=== PATIENT | female | born 1935 | race African-American/Black ===

== ENCOUNTER 2018-09-25 19:34 | Inpatient (IN) ==
--- NOTE | 2018-09-25 20:02 | ED ---
HPI General Chief Complaint: Abdominal Pain Stated Complaint: Abdominal pain Time Seen by Provider: 09/25/18 19:50 History of Present Illness HPI narrative: The patient was seen and examined in the presence of the nurse. This patient complains of abdominal pain. Duration is 18 hours. Severity is moderate. Location is right upper quadrant. She has low-grade temp of 100.2. Not having vomiting or diarrhea or urinary complaint. She has had a bit of cough and congestion lately. She is very hard of hearing. Most of the history provided by her daughter. No alleviating factors. No exacerbating factors. Related Data Home Medications Medication Instructions Recorded Confirmed alprazolam 0.25 mg PO BID 09/25/18 09/25/18 carbidopa-levodopa 1 tab PO BID 09/25/18 09/25/18 diltiazem HCl [DILT-XR] 120 mg PO DAILY 09/25/18 09/25/18 furosemide 40 mg PO DAILY 09/25/18 09/25/18 hydrocodone-acetaminophen 1 tab PO Q6H 09/25/18 09/25/18 lisinopril 5 mg PO DAILY 09/25/18 09/25/18 metoprolol tartrate 25 mg PO BID 09/25/18 09/25/18 potassium chloride 10 meq PO DAILY 09/25/18 09/25/18 risperidone 0.25 mg PO DAILY 09/25/18 09/25/18 temazepam 7.5 mg PO DAILY 09/25/18 09/25/18 warfarin 4 mg PO DAILY 09/25/18 09/25/18 Allergies Allergy/AdvReac Type Severity Reaction Status Date / Time propoxyphene Allergy Severe ITCHING Verified 09/25/18 22:25 Review of Systems ROS: all other systems reviewed are negative [facility] Medical History Medical History Afib (Acute) Anxiety (Acute) Hypertension (Acute) Parkinson disease (Acute) Surgical History Surgical History History of coronary artery stent placement (Acute) History of hip replacement (Acute) Social History Social History Substance History: No History of Abuse Second Hand Smoke Exposure: No Smoking Status: Never smoker How Often Do You Have a Drink Containing Alcohol: Never Recent Travel in [facility] within the Last 8 Weeks: No Recent Out of Country Travel within the Last 8 Weeks: No Immunization History Tetanus Immunization: Unsure Exam Narrative Exam Narrative: GENERAL: Well-nourished, well-developed patient in no apparent distress. SKIN: Focused skin assessment reveals no rash and nodules. Skin is Warm and dry. HEAD: Atraumatic. Normocephalic. EYES: Pupils equal and round. No scleral icterus. No injection or drainage. ENT: No nasal bleeding or discharge. Mucous membranes pink and moist. NECK: Trachea midline. No JVD. CARDIOVASCULAR: Regular rate and rhythm. No murmur appreciated. RESPIRATORY: No accessory muscle use. Diminished breath sounds throughout but clear to auscultation. Breath sounds equal bilaterally. GASTROINTESTINAL: Abdomen soft, right upper quadrant is tender without rebound or guarding , nondistended. Hepatic and splenic margins not palpable. MUSCULOSKELETAL: No obvious deformities. No clubbing. No cyanosis. No edema. NEUROLOGICAL: Awake and alert and very hard of hearing. Motor grossly within normal limits. Normal speech. PSYCHIATRIC: Appropriate mood and affect; insight and judgment normal. Course Initial Documented Vital Signs Temperature 100.2 F H 09/25/18 19:37 Pulse Rate 88 09/25/18 19:37 Respiratory Rate 18 09/25/18 19:37 Blood Pressure 108/68 09/25/18 19:37 Pulse Oximetry 96 09/25/18 19:37 Last Documented Vital Signs Temperature 100.2 F H 09/25/18 19:37 Pulse Rate 91 H 09/25/18 19:53 Respiratory Rate 18 09/25/18 19:53 Blood Pressure 134/72 09/25/18 19:53 Pulse Oximetry 98 09/25/18 19:53 Medical Decision Making [facility] Narrative Medical decision making narrative: 83-year-old female complaining of right upper quadrant pain. I have ordered labs and urine studies as well as CT of abdomen and pelvis. Will evaluate chest x-ray as well. Lab studies are reasonably normal except for hyperkalemia 5.5. She does take supplementation. Catheterized urine is looking infected. CT scan shows findings consistent with choledocholithiasis. There is dilatation of the bile duct down to the level of the pancreatic head. Some distention of gallbladder noted I reviewed with hospitalist will admit. I have given a dose of Zosyn to start. 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 I believe that will be the reasonable first step. Medical Screen Exam Complete: Yes Emergency Medical Condition: Yes Lab Data Lab results narrative: Normal CBC, mild hyperkalemia Result diagrams: 09/25/18 20:00 09/25/18 20:00 Lab Results 09/25/18 09/25/18 09/25/18 Range/Units 20:00 20:00 20:00 WBC 8.4 (4.0-11.0) th/mm3 RBC 5.05 (4.00-5.30) mil/mm3 Hgb 12.7 (11.6-15.3) gm/dL Hct 38.1 (35.0-46.0) % MCV 75.5 L (80.0-100.0) fL MCH 25.1 L (27.0-34.0) pg MCHC 33.3 (32.0-36.0) % RDW 14.8 (11.6-17.2) % Plt Count 233 (150-450) th/mm3 MPV 8.8 (7.0-11.0) fL Neut % (Auto) 74.9 H (16.0-70.0) % Lymph % (Auto) 16.6 (9.0-44.0) % [place] % (Auto) 7.8 (0.0-8.0) % Eos % (Auto) 0.4 (0.0-4.0) % Baso % (Auto) 0.3 (0.0-2.0) % Neut # (Auto) 6.3 (1.8-7.7) th/mm3 Lymph # (Auto) 1.4 (1.0-4.8) th/mm3 [place] # (Auto) 0.7 (0.0-0.9) th/mm3 Eos # (Auto) 0.0 (0.0-0.4) th/mm3 Baso # (Auto) 0.0 (0.0-0.2) th/mm3 WBC Differential . Differential Comment Auto diff final PT 11.1 (9.8-11.6) sec INR 1.1 Ratio APTT 24.7 (23.4-31.7) sec Sodium 135 L (136-145) meq/L Potassium 5.5 H (3.5-5.1) meq/L Chloride 104 (98-107) meq/L Carbon Dioxide 25.4 (21.0-32.0) meq/L Anion Gap 6 (5-15) meq/L BUN 14 (7-18) mg/dL Creatinine 1.24 H (0.50-1.00) mg/dL Estimated GFR 50 L (>89) mL/min Random Glucose 124 H (74-106) mg/dL Calcium 8.8 (8.5-10.1) mg/dL Total Bilirubin 1.8 H (0.2-1.0) mg/dL AST 35 (15-37) U/L ALT 17 (10-53) U/L Alkaline Phosphatase 83 (45-117) U/L Total Protein 8.7 H (6.4-8.2) g/dL Albumin 3.2 L (3.4-5.0) g/dL Lipase 100 (73-393) U/L Urine Color (Yellw/Straw) Urine Clarity (Clear) Urine pH (5.0-8.5) Ur Specific [place] (1.002-1.035) Urine Protein (Neg-Trace) mg/dL Urine Glucose (UA) (Negative) mg/dL Urine Ketones (Negative) mg/dL Urine Occult Blood (Negative) Urine Nitrate (Negative) Urine Bilirubin (Negative) Urine Urobilinogen (Less than 2) mg/dL Ur Leukocyte Esterase (Negative) Urine RBC (0-3) /hpf Urine WBC (0-5) /hpf Urine WBC Clumps (None) Ur Squamous Epith Cells (0-5) /hpf Amorphous Sediment (None) /hpf Urine Bacteria (None) /hpf Hyaline Casts (0-3) /lpf Urine Mucus (Occasional) /lpf Micro UA Comment Ur Microscopic Review Urine Culture Comments 09/25/18 Range/Units 21:04 WBC (4.0-11.0) th/mm3 RBC (4.00-5.30) mil/mm3 Hgb (11.6-15.3) gm/dL Hct (35.0-46.0) % MCV (80.0-100.0) fL MCH (27.0-34.0) pg MCHC (32.0-36.0) % RDW (11.6-17.2) % Plt Count (150-450) th/mm3 MPV (7.0-11.0) fL Neut % (Auto) (16.0-70.0) % Lymph % (Auto) (9.0-44.0) % [place] % (Auto) (0.0-8.0) % Eos % (Auto) (0.0-4.0) % Baso % (Auto) (0.0-2.0) % Neut # (Auto) (1.8-7.7) th/mm3 Lymph # (Auto) (1.0-4.8) th/mm3 [place] # (Auto) (0.0-0.9) th/mm3 Eos # (Auto) (0.0-0.4) th/mm3 Baso # (Auto) (0.0-0.2) th/mm3 WBC Differential Differential Comment PT (9.8-11.6) sec INR Ratio APTT (23.4-31.7) sec Sodium (136-145) meq/L Potassium (3.5-5.1) meq/L Chloride (98-107) meq/L Carbon Dioxide (21.0-32.0) meq/L Anion Gap (5-15) meq/L BUN (7-18) mg/dL Creatinine (0.50-1.00) mg/dL Estimated GFR (>89) mL/min Random Glucose (74-106) mg/dL Calcium (8.5-10.1) mg/dL Total Bilirubin (0.2-1.0) mg/dL AST (15-37) U/L ALT (10-53) U/L Alkaline Phosphatase (45-117) U/L Total Protein (6.4-8.2) g/dL Albumin (3.4-5.0) g/dL Lipase (73-393) U/L Urine Color [place] (Yellw/Straw) Urine Clarity Cloudy H (Clear) Urine pH 5.0 (5.0-8.5) Ur Specific [place] 1.019 (1.002-1.035) Urine Protein 500 or greater (Neg-Trace) mg/dL Urine Glucose (UA) Negative (Negative) mg/dL Urine Ketones Negative (Negative) mg/dL Urine Occult Blood Small H (Negative) Urine Nitrate Positive H (Negative) Urine Bilirubin Negative (Negative) Urine Urobilinogen 4 or greater (Less than 2) mg/dL Ur Leukocyte Esterase Moderate H (Negative) Urine RBC 17 H (0-3) /hpf Urine WBC (0-5) /hpf Urine WBC Clumps Many H (None) Ur Squamous Epith Cells 2 (0-5) /hpf Amorphous Sediment Rare H (None) /hpf Urine Bacteria Many H (None) /hpf Hyaline Casts 107 (0-3) /lpf Urine Mucus Many H (Occasional) /lpf Micro UA Comment Cath-culture ind Ur Microscopic Review Not Reportable Urine Culture Comments Cath-cult indicated Imaging Data Attestation: I personally reviewed and interpreted this imaging study as follows : My impression: Biliary. Some gallbladder distention. Possible stone or mass in the duct Radiologist's impression: Abdomen/Pelvis CT 09/25/18 19:58 CONCLUSION: 1. Biliary duct dilatation down to the level the pancreatic head and ampulla. There are some subtle increased density within the distal common bile duct related to either a stone or possible mass in this region. The gallbladder is distended. The gallbladder wall is thickened. Some superimposed cholecystitis may also be present. 2. Scattered colonic diverticula without inflammatory change. 3. Chronic mild compression deformities at T12, L1 and L4. These were present on the prior exam. Chest X-Ray 09/25/18 19:58 CONCLUSION: 1. No acute cardiopulmonary disease. 2. Old trauma involving the right clavicle and right humerus. Discharge Plan Discharge Order Discharge Orders: ED Use Only Admit Order (Routine); Ordered 09/25/18 Ordered By: Aj Hooper Physicians Team ED Provider: Aj Hooper Primary Care Provider: UNKNOWN, Rxs /Orders / Referrals /Forms Prescriptions: No Action furosemide 40 mg Tablet 40 mg PO DAILY RF: 0 risperidone 0.25 mg Tablet 0.25 mg PO DAILY RF: 0 potassium chloride 10 mEq Tablet Extended Release 10 meq PO DAILY RF: 0 hydrocodone-acetaminophen 10-325 mg Tablet 1 tab PO Q6H RF: 0 temazepam 7.5 mg Capsule 7.5 mg PO DAILY RF: 0 alprazolam 0.25 mg Tablet 0.25 mg PO BID RF: 0 diltiazem HCl [DILT-XR] 120 mg Capsule,Ext.Rel 24h Degradable 120 mg PO DAILY RF: 0 lisinopril 5 mg Tablet 5 mg PO DAILY RF: 0 warfarin 1 mg Tablet 4 mg PO DAILY RF: 0 metoprolol tartrate 25 mg Tablet 25 mg PO BID RF: 0 carbidopa-levodopa 10-100 mg Tablet,Disintegrating 1 tab PO BID RF: 0 Discharge Interventions Interventions: Vital Signs Last Done: 09/25/18 19:53 Status ED Status: Admitted Patient
--- NOTE | 2018-09-25 20:14 | XR ---
EXAM DATE: 09/25/2018 8:12 PM EST AGE/SEX: 83 years / Female INDICATIONS: Short of breath. Fever. CLINICAL DATA: This is the patient's initial encounter. Patient reports that signs and symptoms have been present for 2 days and indicates a pain score of 0/10. MEDICAL/SURGICAL HISTORY: . Cardiovascular disease. Hypertension. Deep venous thrombosis. Hyst erectomy. COMPARISON: No prior exams available for comparison. FINDINGS: A single AP view of the chest demonstrates the lungs to be symmetrically aerated without evidence of mass, infiltrate or effusion. The cardiomediastinal contours are unremarkable. Osseous structures a re intact. Old trauma involving the proximal right humerus and distal right clavicle. CONCLUSION: 1. No acute cardiopulmonary disease. 2. Old trauma involving the right clavicle and right humerus. Electronically signed by: Dante Carrillo MD Board Certified Radiologist 09/25/2018 8:13 PM EST
[2018-09-25 20:25] LABS: Baso % (Auto) 0.3 % (0.0-2.0); Eos % (Auto) 0.4 % (0.0-4.0); Hematocrit 38.1 % (35.0-46.0); Hemoglobin 12.7 gm/dL (11.6-15.3); Lymph # (Auto) 1.4 th/mm3 (1.0-4.8); Lymph % (Auto) 16.6 % (9.0-44.0); Mean Corpuscular HGB Conc 33.3 % (32.0-36.0); Mean Corpuscular Hemoglobin 25.1 pg (27.0-34.0); Mean Corpuscular Volume 75.5 fL (80.0-100.0); Mean Platelet Volume 8.8 fL (7.0-11.0); Mono # (Auto) 0.7 th/mm3 (0.0-0.9); Mono % (Auto) 7.8 % (0.0-8.0); Neut # (Auto) 6.3 th/mm3 (1.8-7.7); Neut % (Auto) 74.9 % (16.0-70.0); Platelet Count 233 th/mm3 (150-450); Red Blood Count 5.05 mil/mm3 (4.00-5.30); Red Cell Distribution Width 14.8 % (11.6-17.2); White Blood Count 8.4 th/mm3 (4.0-11.0)
[2018-09-25 20:37] LABS: Activated Partial Thrombo Time 24.7 sec (23.4-31.7); INR 1.1 Ratio; Prothrombin Time 11.1 sec (9.8-11.6)
[2018-09-25 20:42] LABS: Alanine Aminotransferase 17 U/L (10-53); Alkaline Phosphatase 83 U/L (45-117); Total Protein 8.7 g/dL (6.4-8.2)
[2018-09-25 20:43] LABS: Albumin 3.2 g/dL (3.4-5.0); Anion Gap 6 meq/L (5-15); Aspartate Aminotransferase 35 U/L (15-37); Blood Urea Nitrogen 14 mg/dL (7-18); Calcium 8.8 mg/dL (8.5-10.1); Carbon Dioxide 25.4 meq/L (21.0-32.0); Chloride 104 meq/L (98-107); Glomerular Filtration Rate 50 mL/min (>89); Glucose,Random 124 mg/dL (74-106); Lipase 100 U/L (73-393); Potassium 5.5 meq/L (3.5-5.1); Sodium 135 meq/L (136-145)
--- NOTE | 2018-09-25 21:25 | CT ---
EXAM DATE: 09/25/2018 9:16 PM EST AGE/SEX: 83 years / Female INDICATIONS: Right upper quadrant pain. CLINICAL DATA: This is the patient's initial encounter. Patient reports that signs and symptoms have been present for 1 day and indicates a pain score of 6/10. MEDICAL/SURGICAL HISTORY: Hypertension. Coronary artery stent. Bilateral hip replacements. ORAL CONTRAST: No oral contrast ingested. RADIATION DOSE: 8.5 CTDI (mGy) COMPARISON: [facility] – [place], CT ABDOMEN & PELVIS W/O CONTRAST, 09/05/2016. . TECHNIQUE: Multiple contiguous axial images were obtained through the abdomen and pelvis following b olus infusion of 75 ml Omnipaque 350 (iohexol) nonionic water-soluble contrast as a single exam dos e. No oral contrast ingested. Using automated exposure control and adjustment of the mA and/or kV ac cording to patient size, radiation dose was kept as low as reasonably achievable to obtain optimal di agnostic quality images. DICOM format image data is available electronically for review and comparis on. FINDINGS: Lower Lungs: There is some minimal increased density seen at the bases likely related to atelectasis. Liver: There is mild intrahepatic biliary duct dilatation. There is very prominent distention of the gallbladder. The gallbladder wall appears taken. The common bile duct is dilated down to the level th e pancreatic head. There appears to be some subtle increased density in the distal pancreatic head co uld be related to a stone or mass in this region. Spleen: Homogeneous density without enlargement. Pancreas: There is mild dilatation the pancreatic duct. Again noted is the common bile duct dilatati on of the pancreatic head level. Kidneys: Normal in size and shape. No evidence of mass or hydronephrosis. Adrenal Glands: Unremarkable. Aorta: The aorta and proximal iliac vessels are grossly unremarkable without aneurysmal dilation. T here are scattered atherosclerotic calcifications present. Bowel/Mesentery: The bowel loops are grossly unremarkable. The cecum and sigmoid colon have a normal configuration. There are scattered colonic diverticula without inflammatory change. Abdominal Wall: Intact. Retroperitoneum: There is an IVC filter in place. No evidence of adenopathy in the retrocrural, para -aortic, or deep pelvic regions. Bladder: Contours are smooth. Reproductive Organs: No abnormal masses or calcifications seen. Inguinal: The inguinal region is unremarkable without evidence of adenopathy. Bony Structures: There are mild, chronic compression deformity is at the superior aspect of T12, sup erior aspect of L1 and minimally at L4. These were present on the prior exam. There are bilateral hip replacements present. CONCLUSION: 1. Biliary duct dilatation down to the level the pancreatic head and ampulla. There are some subtle increased density within the distal common bile duct related to either a stone or possible mass in th is region. The gallbladder is distended. The gallbladder wall is thickened. Some superimposed cholecy stitis may also be present. 2. Scattered colonic diverticula without inflammatory change. 3. Chronic mild compression deformities at T12, L1 and L4. These were present on the prior exam. Electronically signed by: Klaus Oh MD Board Certified Radiologist 09/25/2018 9:23 PM EST
[2018-09-25 21:30] LABS: Amorphous Sediment,Urine Rare /hpf; Bacteria,Urine Many /hpf; Bilirubin,Urine Negative (Negative); Clarity,Urine Cloudy (Clear); Color,Urine Amber (Yellw/Straw); Glucose,Urine (UA) Negative (Negative); Hyaline Casts,Urine 107 /lpf (0-3); Leukocyte Esterase,Urine Moderate (Negative); Mucus,Urine Many /lpf (Occasional); Nitrite,Urine Positive (Negative); Specific Gravity,Urine 1.019 (1.002-1.035); Squamous Epithelial Cell,Urine 2 /hpf (0-5); Urobilinogen,Urine 4 or Greater mg/dL (Less than 2)
[2018-09-25] MEDS ORDERED: Piperacil/Tazo 3.375 GM Premix 3.375 GM/50 ML PIGGYBACK IV.SIG ONE (22:36)
[2018-09-26] MEDS ORDERED: Bisacodyl 10 MG Supp RECTAL PRN (00:12)
[2018-09-26] MEDS ORDERED: Morphine Inj 4 MG/ML Vial IV.PUSH PRN (00:19)
--- NOTE | 2018-09-26 00:56 | P.HP ---
History of Present Illness Service: [facility] Primary Care Physician: UNKNOWN History of Present Illness: 83-year-old female with a past medical history significant for hypertension, coronary artery disease, CHF, a fib, anxiety, Parkinson's disease and history of DVT anticoagulated on Coumadin presents to the emergency department for evaluation of right upper quadrant abdominal pain. History provided by the patient's daughter. She reports that the patient has been complaining of abdominal pain since Sunday when she saw her primary care provider who prescribed an unknown medication that the patient has not yet been able to take. No fever/chills. No chest pain or shortness of breath. No nausea/ vomiting/diarrhea. No focal neurologic deficits. Inpatient Certification: I certify that the inpatient services were ordered in accordance with Medicare regulations governing the order. This includes certification that hospital inpatient services are reasonable and necessary and in the case of services not specified as inpatient-only under 42 CFR 419.22(n), that they are appropriately provided as inpatient services in accordance to with the 2-midnight benchmark under 43 CFR 412.3(e) Estimated Total Length of Stay (Days): 2 Plans for Post Hospital Care: SNF Review of Systems All other systems reviewed negative except as stated in HPI PMFSH - History History Provided By: Patient - Medical History Medical History: Medical History (Last Updated 09/26/18 @ 00:54 by Niyah Nice MD) A-fib Anxiety Congestive heart failure Coronary artery disease History of DVT (deep vein thrombosis) Hypertension Parkinson disease - Surgical History Surgical History: Surgical History (Last Updated 09/26/18 @ 00:46 by Niyah Nice MD) History of coronary artery stent placement History of hip replacement History of knee surgery - Family History Family History: Family History (Last Updated 09/26/18 @ 00:47 by Niyah Nice MD) Other Family history unknown - Tobacco History Second Hand Smoke Exposure: No Tobacco Use In Past 30 Days: No Smoking Status: Never smoker - Alcohol History How Often Do You Have a Drink Containing Alcohol: Never - Substance Use History Substance History: No History of Abuse - Travel History Recent Travel in the [place] Within the Last 8 Weeks: No Recent Travel Out of the Country Within the Last 8 Weeks: No - Immunization History Tetanus Immunization: Unsure Medications and Allergies Active Medications: Active Medications Acetaminophen (Tylenol) 650 mg PO Q4H PRN PRN Reason: Temp > 100.4 Al Hydroxide/Mg Hydroxide (Milk Of Magnesia Liq) 30 ml PO Q12H PRN PRN Reason: Mild Constipation Bisacodyl (Dulcolax Supp) 10 mg RECTAL DAILY PRN PRN Reason: SEVERE CONSITIPATION Sodium Chloride (Ns Inj) 1,000 mls @ 100 mls/hr IV.CONT .Q10H JESSICA Piperacillin/Tazobactam/Dextrose (Zosyn 2.25 Gm Premix) 2.25 gm in 50 mls @ 100 mls/hr IV.SIG Q6H JESSICA Lactulose (Lactulose Liq) 30 ml PO DAILY PRN PRN Reason: SEVERE CONSITIPATION Morphine Sulfate (Morphine Inj) 2 mg IV.PUSH Q3H PRN PRN Reason: PAIN SCALE 1 TO 10 Ondansetron HCl (Zofran Inj) 4 mg IV.PUSH Q6H PRN PRN Reason: NAUSEA OR VOMITING Sennosides (Senokot) 17.2 mg PO Q12H PRN PRN Reason: Moderate Constipation Sodium Chloride (Ns Flush) 2 ml IV.FLUSH PRN PRN PRN Reason: FLUSH AFTER USING IV ACCESS Sodium Chloride (Ns Flush) 2 ml IV.FLUSH BID JESSICA Sodium Chloride (Ns Flush) 2 ml IV.FLUSH PRN PRN PRN Reason: FLUSH AFTER USING IV ACCESS Allergies Allergy/AdvReac Type Severity Reaction Status Date / Time propoxyphene Allergy Severe ITCHING Verified 09/25/18 22:25 Home Medications Medication Instructions Recorded Confirmed Type alprazolam 0.25 mg PO BID 09/25/18 09/25/18 History carbidopa-levodopa 1 tab PO BID 09/25/18 09/25/18 History diltiazem HCl [DILT-XR] 120 mg PO DAILY 09/25/18 09/25/18 History furosemide 40 mg PO DAILY 09/25/18 09/25/18 History hydrocodone-acetaminophen 1 tab PO Q6H 09/25/18 09/25/18 History lisinopril 5 mg PO DAILY 09/25/18 09/25/18 History metoprolol tartrate 25 mg PO BID 09/25/18 09/25/18 History potassium chloride 10 meq PO DAILY 09/25/18 09/25/18 History risperidone 0.25 mg PO DAILY 09/25/18 09/25/18 History temazepam 7.5 mg PO DAILY 09/25/18 09/25/18 History warfarin 4 mg PO DAILY 09/25/18 09/25/18 History Exam Vital signs: Vital Signs 09/25/18 19:37 09/25/18 19:53 Temperature 100.2 F H Pulse Rate 88 91 H Respiratory Rate 18 18 Blood Pressure 108/68 134/72 Pulse Oximetry 96 98 Intake & Output 09/25/18 09/25/18 09/26/18 06:59 18:59 06:59 Intake Total 50 / 50 Balance 50 / 50 Weight 63.503 kg Intake: IV 50 / 50 Zosyn 3.375 GM Premix 3.375 gm 50 / 50 In 50 ml @ 100 mls/hr IV.SIG ONCE ONE Rx#:[id number] Narrative: Gen.: No acute distress. -[place] female lying in bed sleeping Head: Normocephalic. Atraumatic. EENT: Pupils equal round and reactive to light. Nose without drainage. Airway intact. Throat without injection. Cardiovascular: Regular rate and rhythm. No murmurs, rubs or gallops. Respiratory: Lungs clear to auscultation bilaterally. No wheezes or rhonchi. Abdomen: Soft, exquisitely tender to palpation in the right upper quadrant, nondistended. No peritoneal signs. Musculoskeletal: No gross deformities. No edema. Skin: No obvious rashes or erythema. Neuro: Sensory and motor grossly intact. Cranial nerves II through XII grossly intact. Results - Labs CBC & Chem 7: 09/25/18 20:00 09/25/18 20:00 Labs: Laboratory Results - last 24 hr 09/25/18 09/25/18 09/25/18 20:00 20:00 20:00 WBC 8.4 RBC 5.05 Hgb 12.7 Hct 38.1 MCV 75.5 L MCH 25.1 L MCHC 33.3 RDW 14.8 Plt Count 233 MPV 8.8 Neut % (Auto) 74.9 H Lymph % (Auto) 16.6 [place] % (Auto) 7.8 Eos % (Auto) 0.4 Baso % (Auto) 0.3 Neut # (Auto) 6.3 Lymph # (Auto) 1.4 [place] # (Auto) 0.7 Eos # (Auto) 0.0 Baso # (Auto) 0.0 WBC Differential . Differential Comment Auto diff final PT 11.1 INR 1.1 APTT 24.7 Sodium 135 L Potassium 5.5 H Chloride 104 Carbon Dioxide 25.4 Anion Gap 6 BUN 14 Creatinine 1.24 H Estimated GFR 50 L Random Glucose 124 H Calcium 8.8 Total Bilirubin 1.8 H AST 35 ALT 17 Alkaline Phosphatase 83 Total Protein 8.7 H Albumin 3.2 L Lipase 100 Urine Color Urine Clarity Urine pH Ur Specific Triangle Urine Protein Urine Glucose (UA) Urine Ketones Urine Occult Blood Urine Nitrate Urine Bilirubin Urine Urobilinogen Ur Leukocyte Esterase Urine RBC Urine WBC Urine WBC Clumps Ur Squamous Epith Cells Amorphous Sediment Urine Bacteria Hyaline Casts Urine Mucus Micro UA Comment Ur Microscopic Review Urine Culture Comments 09/25/18 21:04 WBC RBC Hgb Hct MCV MCH MCHC RDW Plt Count MPV Neut % (Auto) Lymph % (Auto) [place] % (Auto) Eos % (Auto) Baso % (Auto) Neut # (Auto) Lymph # (Auto) [place] # (Auto) Eos # (Auto) Baso # (Auto) WBC Differential Differential Comment PT INR APTT Sodium Potassium Chloride Carbon Dioxide Anion Gap BUN Creatinine Estimated GFR Random Glucose Calcium Total Bilirubin AST ALT Alkaline Phosphatase Total Protein Albumin Lipase Urine Color [place] Urine Clarity Cloudy H Urine pH 5.0 Ur Specific Triangle 1.019 Urine Protein 500 or greater Urine Glucose (UA) Negative Urine Ketones Negative Urine Occult Blood Small H Urine Nitrate Positive H Urine Bilirubin Negative Urine Urobilinogen 4 or greater Ur Leukocyte Esterase Moderate H Urine RBC 17 H Urine WBC Urine WBC Clumps Many H Ur Squamous Epith Cells 2 Amorphous Sediment Rare H Urine Bacteria Many H Hyaline Casts 107 Urine Mucus Many H Micro UA Comment Cath-culture ind Ur Microscopic Review Not Reportable Urine Culture Comments Cath-cult indicated - Imaging Impressions Abdomen/Pelvis CT 09/25/18 19:58 CONCLUSION: 1. Biliary duct dilatation down to the level the pancreatic head and ampulla. There are some subtle increased density within the distal common bile duct related to either a stone or possible mass in this region. The gallbladder is distended. The gallbladder wall is thickened. Some superimposed cholecystitis may also be present. 2. Scattered colonic diverticula without inflammatory change. 3. Chronic mild compression deformities at T12, L1 and L4. These were present on the prior exam. Chest X-Ray 09/25/18 19:58 CONCLUSION: 1. No acute cardiopulmonary disease. 2. Old trauma involving the right clavicle and right humerus. Caprini VTE Risk Assessment Caprini VTE Risk Assessment: Moderate/High Risk (score >= 2) Caprini Risk Assessment Model: Point Value = 1 Point Value = 2 Point Value = 3 Point Value = 5 Age 41-60 Minor surgery BMI > 25 kg/m2 Swollen legs Varicose veins or History of unexplained or recurrent spontaneous Oral contraceptives or hormone replacement Sepsis (< 1 month) Serious lung disease, including pneumonia (< 1 month) Abnormal pulmonary function Acute myocardial infarction Congestive heart failure (< 1 month) History of inflammatory bowel disease Medical patient at bed rest Age 61-74 Arthroscopic surgery Major open surgery (> 45 min) Laparoscopic surgery (> 45 min) Malignancy Confined to bed (> 72 hours) Immobilizing plaster cast Central venous access Age >= 75 History of VTE Family history of VTE Factor V Leiden Prothrombin [id number] Lupus anticoagulant Anticardiolipin antibodies Elevated serum homocysteine Heparin-induced thrombocytopenia Other congenital or acquired thrombophilia Stroke (< 1 month) Elective arthroplasty Hip, pelvis, or leg fracture Acute spinal cord injury (< 1 month) Prophylaxis Regimen: Total Risk Factor Score Risk Level Prophylaxis Regimen 0-1 Low Early ambulation 2 Moderate Order ONE of the following: *Sequential Compression Device (SCD) *Heparin 5000 units SQ BID 3-4 Higher Order ONE of the following medications: *Heparin 5000 units SQ TID *Enoxaparin/Lovenox 40 mg SQ daily (WT < 150 kg, CrCl > 30 mL/min) *Enoxaparin/Lovenox 30 mg SQ daily (WT < 150 kg, CrCl > 10-29 mL/min) *Enoxaparin/Lovenox 30 mg SQ BID (WT < 150 kg, CrCl > 30 mL/min) AND/OR *Sequential Compression Device (SCD) 5 or more Highest Order ONE of the following medications: *Heparin 5000 units SQ TID (Preferred with Epidurals) *Enoxaparin/Lovenox 40 mg SQ daily (WT < 150 kg, CrCl > 30 mL/min) *Enoxaparin/Lovenox 30 mg SQ daily (WT < 150 kg, CrCl > 10-29 mL/min) *Enoxaparin/Lovenox 30 mg SQ BID (WT < 150 kg, CrCl > 30 mL/min) AND *Sequential Compression Device (SCD) Assessment and Plan - Plan Assessment/plan: 1. Right upper quadrant abdominal pain CT of the abdomen/pelvis significant for biliary duct dilatation down to the level of the pancreatic head and ampulla. There are some subtle increased density within the distal common bile duct related to either a stone or possible mass with gallbladder distention and wall thickening. Concern for superimposed cholecystitis Gastroenterology consulted, appreciate assistance [place] 2. Parkinson's disease Continue carbidopa-levodopa 3. Congestive heart failure Continue home Lasix 4. Hypertension/atrial fibrillation/CAD Continue home diltiazem, metoprolol and lisinopril Holding home Coumadin for probable ERCP 5. Anxiety Continue home Risperdal and temazepam FEN N.p.o. Electrolytes: Monitor and replete as needed NS at 70 cc/hour Holding pharmacologic anticoagulation for possible procedure
[2018-09-26] MEDS: Sod Chloride 0.9% Inj 1,000 ML IV.CONT SCH ×2 (01:06→11:35)
[2018-09-26] MEDS: Acetaminophen 325 MG Tablet PO PRN ×2 (05:38→20:14)
[2018-09-26] MEDS: Piperacil/Tazo 2.25 GM Premix 2.25 GM/50 ML PIGGYBACK IV.SIG SCH ×4 (05:42→23:21)
[2018-09-26] MEDS: DILTIAZEM HCL 120 MG PO SCH (08:29)
[2018-09-26] MEDS: Furosemide 40 MG Tablet PO SCH (08:29)
[2018-09-26] MEDS: ALPRAZolam 0.25 MG Tablet PO SCH ×2 (08:30→20:15)
[2018-09-26] MEDS: Lisinopril 5 MG Tablet PO SCH (08:30)
[2018-09-26] MEDS ORDERED: CARBIDOPA LEVODOPA PO SCH (09:00)
--- NOTE | 2018-09-26 09:34 | P.CONGI ---
History of Present Illness Consult date: 09/26/18 Consult reason: Choledocholithiasis Chief complaint: Choledocholithiasis, UTI History of Present Illness: This patient is an 83-year-old female with past medical history significant for atrial fibrillation, anxiety, congestive heart failure, coronary artery disease, DVT, hypertension and Parkinson's disease. Surgical history significant for placement of coronary artery stent, hip replacement and knee surgery. Patient's daughter reports that patient presented to the emergency room at [facility] for evaluation of right upper quadrant abdominal pain. Daughter states pain started 2 days ago and has been accompanied by decreased appetite. Patient has had no complaints of nausea or active vomiting. Patient's daughter Arcelia denies patient has had fever or chills. She reports patient has had 2 days of constipation. She states patient normally has a soft bowel movement daily to every other day without any noted bleeding. She recalls last EGD and colonoscopy "many years ago". States to her best recollection, there were no abnormal findings. She endorses that patient does not utilize tobacco or alcohol products. Our service has been consulted to evaluate patient for choledocholithiasis found on CT. <Roxy Neal - Last Filed: 09/26/18 19:37> Review of Systems All other systems reviewed negative except as stated in HPI, other <Roxy Neal - Last Filed: 09/26/18 19:37> PMFSH - History History Provided By: Patient - Medical History Medical History: Medical History (Last Reviewed 09/26/18 @ 16:09 by Dean Shaffer MD) A-fib Anxiety Congestive heart failure Coronary artery disease History of DVT (deep vein thrombosis) Hypertension Parkinson disease - Surgical History Surgical History: Surgical History (Last Reviewed 09/26/18 @ 16:09 by Dean Shaffer MD) History of coronary artery stent placement History of hip replacement History of knee surgery - Family History Family History: Family History (Last Reviewed 09/26/18 @ 16:09 by Dean Shaffer MD) Other Family history unknown - Tobacco History Second Hand Smoke Exposure: No Tobacco Use In Past 30 Days: No Smoking Status: Never smoker - Alcohol History How Often Do You Have a Drink Containing Alcohol: Never - Substance Use History Substance History: No History of Abuse - Travel History Recent Travel in the [place] Within the Last 8 Weeks: No Recent Travel Out of the Country Within the Last 8 Weeks: No - Immunization History Tetanus Immunization: Unsure <Roxy Neal - Last Filed: 09/26/18 19:37> - Medical History Medical History: Medical History (Last Reviewed 09/26/18 @ 16:09 by Dean Shaffer MD) A-fib Anxiety Congestive heart failure Coronary artery disease History of DVT (deep vein thrombosis) Hypertension Parkinson disease - Surgical History Surgical History: Surgical History (Last Reviewed 09/26/18 @ 16:09 by Dean Shaffer MD) History of coronary artery stent placement History of hip replacement History of knee surgery - Family History Family History: Family History (Last Reviewed 09/26/18 @ 16:09 by Dean Shaffer MD) Other Family history unknown <Will Ferreira - Last Filed: 09/27/18 08:44> Medications and Allergies Active Medications: Active Medications Acetaminophen (Tylenol) 650 mg PO Q4H PRN PRN Reason: Temp > 100.4 Last Admin: 09/26/18 05:38 Dose: 650 mg Al Hydroxide/Mg Hydroxide (Milk Of Magnesia Liq) 30 ml PO Q12H PRN PRN Reason: Mild Constipation Alprazolam (Xanax) 0.25 mg PO BID [facility] Last Admin: 09/26/18 08:30 Dose: Not Given Bisacodyl (Dulcolax Supp) 10 mg RECTAL DAILY PRN PRN Reason: SEVERE CONSITIPATION Furosemide (Lasix) 40 mg PO DAILY [facility] Last Admin: 09/26/18 08:29 Dose: Not Given Sodium Chloride (Ns Inj) 1,000 mls @ 70 mls/hr IV.CONT .[id number] [facility] Last Admin: 09/26/18 01:06 Dose: 70 mls/hr Piperacillin/Tazobactam/Dextrose (Zosyn 2.25 Gm Premix) 2.25 gm in 50 mls @ 100 mls/hr IV.SIG Q6H [facility] Last Infusion: 09/26/18 06:16 Dose: Infused Lactulose (Lactulose Liq) 30 ml PO DAILY PRN PRN Reason: SEVERE CONSITIPATION Lisinopril (Prinivil) 5 mg PO DAILY [facility] Last Admin: 09/26/18 08:30 Dose: Not Given Metoprolol Tartrate (Lopressor) 25 mg PO BID [facility] Morphine Sulfate (Morphine Inj) 2 mg IV.PUSH Q3H PRN PRN Reason: PAIN SCALE 1 TO 10 Non-Formulary Medication (Carbidopa-Levodopa [Carbidopa-Levodopa]) 1 tab PO BID [facility] Last Admin: 09/26/18 08:29 Dose: Not Given Non-Formulary Medication (Diltiazem Hcl [Dilt-Xr]) 120 mg PO DAILY [facility] Last Admin: 09/26/18 08:29 Dose: Not Given Ondansetron HCl (Zofran Inj) 4 mg IV.PUSH Q6H PRN PRN Reason: NAUSEA OR VOMITING Potassium Chloride (Klor-Con 10) 10 meq PO DAILY [facility] Last Admin: 09/26/18 08:29 Dose: Not Given Risperidone (Risperdal) 0.25 mg PO DAILY [facility] Last Admin: 09/26/18 08:30 Dose: Not Given Sennosides (Senokot) 17.2 mg PO Q12H PRN PRN Reason: Moderate Constipation Sodium Chloride (Ns Flush) 2 ml IV.FLUSH PRN PRN PRN Reason: FLUSH AFTER USING IV ACCESS Sodium Chloride (Ns Flush) 2 ml IV.FLUSH BID [facility] Last Admin: 09/26/18 08:29 Dose: Not Given Sodium Chloride (Ns Flush) 2 ml IV.FLUSH PRN PRN PRN Reason: FLUSH AFTER USING IV ACCESS Temazepam (Restoril) 7.5 mg PO DAILY [facility] Last Admin: 09/26/18 08:29 Dose: Not Given <Roxy Neal - Last Filed: 09/26/18 19:37> Active Medications: Active Medications Acetaminophen (Tylenol) 650 mg PO Q4H PRN PRN Reason: Temp > 100.4 Last Admin: 09/26/18 20:14 Dose: 650 mg Al Hydroxide/Mg Hydroxide (Milk Of Magnesia Liq) 30 ml PO Q12H PRN PRN Reason: Mild Constipation Alprazolam (Xanax) 0.25 mg PO BID [facility] Last Admin: 09/26/18 20:15 Dose: 0.25 mg Bisacodyl (Dulcolax Supp) 10 mg RECTAL DAILY PRN PRN Reason: SEVERE CONSITIPATION Carbidopa/Levodopa (Simemet 10/100 Mg) 1 tab PO BID [facility] Last Admin: 09/26/18 22:18 Dose: 1 tab Furosemide (Lasix) 40 mg PO DAILY [facility] Last Admin: 09/26/18 08:29 Dose: Not Given Sodium Chloride (Ns Inj) 1,000 mls @ 70 mls/hr IV.CONT .[id number] [facility] Last Admin: 09/27/18 05:58 Dose: 70 mls/hr Piperacillin/Tazobactam/Dextrose (Zosyn 2.25 Gm Premix) 2.25 gm in 50 mls @ 100 mls/hr IV.SIG Q6H [facility] Last Admin: 09/27/18 05:58 Dose: 100 mls/hr Lactulose (Lactulose Liq) 30 ml PO DAILY PRN PRN Reason: SEVERE CONSITIPATION Lisinopril (Prinivil) 5 mg PO DAILY [facility] Last Admin: 09/26/18 08:30 Dose: Not Given Metoprolol Tartrate (Lopressor) 25 mg PO BID [facility] Last Admin: 09/26/18 20:15 Dose: 25 mg Morphine Sulfate (Morphine Inj) 2 mg IV.PUSH Q3H PRN PRN Reason: PAIN SCALE 1 TO 10 Non-Formulary Medication (Diltiazem Hcl [Dilt-Xr]) 120 mg PO DAILY [facility] Last Admin: 09/26/18 08:29 Dose: Not Given Ondansetron HCl (Zofran Inj) 4 mg IV.PUSH Q6H PRN PRN Reason: NAUSEA OR VOMITING Last Admin: 09/26/18 11:34 Dose: 4 mg Potassium Chloride (Klor-Con 10) 10 meq PO DAILY [facility] Last Admin: 09/26/18 08:29 Dose: Not Given Risperidone (Risperdal) 0.25 mg PO DAILY [facility] Last Admin: 09/26/18 08:30 Dose: Not Given Sennosides (Senokot) 17.2 mg PO Q12H PRN PRN Reason: Moderate Constipation Sodium Chloride (Ns Flush) 2 ml IV.FLUSH PRN PRN PRN Reason: FLUSH AFTER USING IV ACCESS Sodium Chloride (Ns Flush) 2 ml IV.FLUSH BID [facility] Last Admin: 09/26/18 20:15 Dose: 2 ml Sodium Chloride (Ns Flush) 2 ml IV.FLUSH PRN PRN PRN Reason: FLUSH AFTER USING IV ACCESS Temazepam (Restoril) 7.5 mg PO DAILY [facility] Last Admin: 12/20/18 08:29 Dose: Not Given <Will Ferreira - Last Filed: 09/27/18 08:44> Allergies Allergy/AdvReac Type Severity Reaction Status Date / Time propoxyphene Allergy Severe ITCHING Verified 09/25/18 22:25 Home Medications Medication Instructions Recorded Confirmed Type alprazolam 0.25 mg PO BID 09/25/18 09/25/18 History carbidopa-levodopa 1 tab PO BID 09/25/18 09/25/18 History diltiazem HCl [DILT-XR] 120 mg PO DAILY 09/25/18 09/25/18 History furosemide 40 mg PO DAILY 09/25/18 09/25/18 History hydrocodone-acetaminophen 1 tab PO Q6H 09/25/18 09/25/18 History lisinopril 5 mg PO DAILY 09/25/18 09/25/18 History metoprolol tartrate 25 mg PO BID 09/25/18 09/25/18 History potassium chloride 10 meq PO DAILY 09/25/18 09/25/18 History risperidone 0.25 mg PO DAILY 09/25/18 09/25/18 History temazepam 7.5 mg PO DAILY 09/25/18 09/25/18 History warfarin 4 mg PO DAILY 09/25/18 09/25/18 History Exam Vital signs: Vital Signs 09/25/18 19:37 09/25/18 19:53 09/26/18 01:24 Temperature 100.2 F H 99.1 F Pulse Rate 88 91 H 75 Respiratory Rate 18 18 16 Blood Pressure 108/68 134/72 148/93 H Pulse Oximetry 96 98 95 09/26/18 01:47 09/26/18 04:00 09/26/18 06:24 Temperature 101.0 F H 99.5 F Pulse Rate 89 Respiratory Rate 16 16 Blood Pressure 127/73 Pulse Oximetry 96 09/26/18 07:30 09/26/18 08:00 Temperature 98.6 F 98.4 F Pulse Rate 72 73 Respiratory Rate 16 18 Blood Pressure 106/62 108/58 L Pulse Oximetry 96 97 Intake & Output 09/25/18 09/26/18 09/26/18 18:59 06:59 18:59 Intake Total 100 / 100 Balance 100 / 100 Weight 63.5 kg Intake: IV 100 / 100 Zosyn 2.25 GM Premix 2.25 gm In 50 / 50 50 ml @ 100 mls/hr IV.SIG Q6H [facility] Rx#:[id number] Zosyn 3.375 GM Premix 3.375 gm 50 / 50 In 50 ml @ 100 mls/hr IV.SIG ONCE ONE Rx#:[id number] Other: Weight On Admission 63.5 kg - Constitutional no acute distress, cooperative Comments: 83-year-old elderly female Awake and alert, hard of hearing History of Parkinson's disease - Routine HEENT Exam Head: Present: normocephalic ENT: Present: mucous membranes moist - Routine Neck Exam Present: supple - Routine Respiratory Exam Present: CTA bilaterally. Absent: accessory muscle use - Routine Cardiovascular Exam Present: irregularly irregular - Routine Abdominal Exam Present: soft, normoactive bowel sounds, tenderness. Absent: distended, guarding, firm Comments: Right upper quadrant tenderness on palpation during exam - Routine Extremities Exam Present: pulses intact. Absent: cyanosis, clubbing, edema - Routine Skin Exam Present: dry, warm. Absent: pallor - Routine Neurological Exam Present: alert <Neal,Roxy - Last Filed: 09/26/18 19:37> Vital signs: Vital Signs 09/26/18 12:00 09/26/18 16:00 09/26/18 20:38 Temperature 98.9 F 99.6 F 100.2 F H Pulse Rate 66 69 73 Respiratory Rate 18 18 17 Blood Pressure 115/60 106/62 120/59 L Pulse Oximetry 96 95 92 L 09/27/18 00:20 09/27/18 04:15 09/27/18 08:00 Temperature 99.3 F 101 F H 100.6 F H Pulse Rate 62 77 86 Respiratory Rate 17 17 18 Blood Pressure 114/59 L 138/71 132/69 Pulse Oximetry 100 97 94 L Intake & Output 09/26/18 09/27/18 09/27/18 18:59 06:59 18:59 Intake Total 1100 / 1100 1890 / 1890 Balance 1100 / 1100 1890 / 1890 Weight 63.5 kg 76.2 kg Intake: IV 1100 / 1100 1050 / 1050 NS Inj 1,000 ML @ 70 mls/hr IV. 1000 / 1000 1000 / 1000 CONT .[id number] [facility] Rx#:[id number] Zosyn 2.25 GM Premix 2.25 gm In 100 / 100 50 / 50 50 ml @ 100 mls/hr IV.SIG Q6H [facility] Rx#:[id number] Oral 0 / 0 Other 840 / 840 Other: Other Intake Source Saline Solution # Voids 2 # Bowel Movements 0 <Will Ferreira - Last Filed: 09/27/18 08:44> Results - Labs CBC & Chem 7: 09/25/18 20:00 09/26/18 14:23 Labs: Laboratory Results - last 24 hr 09/25/18 09/25/18 09/25/18 20:00 20:00 20:00 WBC 8.4 RBC 5.05 Hgb 12.7 Hct 38.1 MCV 75.5 L MCH 25.1 L MCHC 33.3 RDW 14.8 Plt Count 233 MPV 8.8 Neut % (Auto) 74.9 H Lymph % (Auto) 16.6 [place] % (Auto) 7.8 Eos % (Auto) 0.4 Baso % (Auto) 0.3 Neut # (Auto) 6.3 Lymph # (Auto) 1.4 Knox # (Auto) 0.7 Eos # (Auto) 0.0 Baso # (Auto) 0.0 WBC Differential . Differential Comment Auto diff final PT 11.1 INR 1.1 APTT 24.7 Sodium 135 L Potassium 5.5 H Chloride 104 Carbon Dioxide 25.4 Anion Gap 6 BUN 14 Creatinine 1.24 H Estimated GFR 50 L Random Glucose 124 H Calcium 8.8 Total Bilirubin 1.8 H AST 35 ALT 17 Alkaline Phosphatase 83 Total Protein 8.7 H Albumin 3.2 L Lipase 100 Urine Color Urine Clarity Urine pH Ur Specific [place] Urine Protein Urine Glucose (UA) Urine Ketones Urine Occult Blood Urine Nitrate Urine Bilirubin Urine Urobilinogen Ur Leukocyte Esterase Urine RBC Urine WBC Urine WBC Clumps Ur Squamous Epith Cells Amorphous Sediment Urine Bacteria Hyaline Casts Urine Mucus Micro UA Comment Ur Microscopic Review Urine Culture Comments 09/25/18 21:04 WBC RBC Hgb Hct MCV MCH MCHC RDW Plt Count MPV Neut % (Auto) Lymph % (Auto) Knox % (Auto) Eos % (Auto) Baso % (Auto) Neut # (Auto) Lymph # (Auto) Knox # (Auto) Eos # (Auto) Baso # (Auto) WBC Differential Differential Comment PT INR APTT Sodium Potassium Chloride Carbon Dioxide Anion Gap BUN Creatinine Estimated GFR Random Glucose Calcium Total Bilirubin AST ALT Alkaline Phosphatase Total Protein Albumin Lipase Urine Color [place] Urine Clarity Cloudy H Urine pH 5.0 Ur Specific [place] 1.019 Urine Protein 500 or greater Urine Glucose (UA) Negative Urine Ketones Negative Urine Occult Blood Small H Urine Nitrate Positive H Urine Bilirubin Negative Urine Urobilinogen 4 or greater Ur Leukocyte Esterase Moderate H Urine RBC 17 H Urine WBC Urine WBC Clumps Many H Ur Squamous Epith Cells 2 Amorphous Sediment Rare H Urine Bacteria Many H Hyaline Casts 107 Urine Mucus Many H Micro UA Comment Cath-culture ind Ur Microscopic Review Not Reportable Urine Culture Comments Cath-cult indicated - Imaging Impressions Abdomen/Pelvis CT 09/25/18 19:58 CONCLUSION: 1. Biliary duct dilatation down to the level the pancreatic head and ampulla. There are some subtle increased density within the distal common bile duct related to either a stone or possible mass in this region. The gallbladder is distended. The gallbladder wall is thickened. Some superimposed cholecystitis may also be present. 2. Scattered colonic diverticula without inflammatory change. 3. Chronic mild compression deformities at T12, L1 and L4. These were present on the prior exam. Chest X-Ray 09/25/18 19:58 CONCLUSION: 1. No acute cardiopulmonary disease. 2. Old trauma involving the right clavicle and right humerus. <Roxy Neal - Last Filed: 09/26/18 19:37> - Labs CBC & Chem 7: 09/27/18 04:26 09/27/18 04:26 Labs: Laboratory Results - last 24 hr 09/25/18 09/26/18 09/27/18 21:04 14:23 04:26 WBC 8.2 RBC 4.04 Hgb 10.2 L D Hct 31.0 L MCV 76.8 L MCH 25.3 L MCHC 33.0 RDW 14.6 Plt Count 166 MPV 9.0 Neut % (Auto) 77.5 H Lymph % (Auto) 12.4 Knox % (Auto) 9.5 H Eos % (Auto) 0.3 Baso % (Auto) 0.3 Neut # (Auto) 6.3 Lymph # (Auto) 1.0 Knox # (Auto) 0.8 Eos # (Auto) 0.0 Baso # (Auto) 0.0 WBC Differential . Differential Comment Auto diff final Sodium 141 Potassium 3.9 D Chloride 107 Carbon Dioxide 28.3 Anion Gap 6 BUN 17 Creatinine 1.20 H Estimated GFR 52 L Random Glucose 101 Calcium 7.8 L D Total Bilirubin 1.8 H AST 8 L ALT 10 Alkaline Phosphatase 71 Total Protein 7.2 D Albumin 2.8 L Urine Color [place] Urine Clarity Cloudy H Urine pH 5.0 Ur Specific [place] 1.019 Urine Protein 500 or greater Urine Glucose (UA) Negative Urine Ketones Negative Urine Occult Blood Small H Urine Nitrate Positive H Urine Bilirubin Negative Urine Urobilinogen 4 or greater Ur Leukocyte Esterase Moderate H Urine RBC 17 H Urine WBC Urine WBC Clumps Many H Ur Squamous Epith Cells 2 Amorphous Sediment Rare H Urine Bacteria Many H Hyaline Casts 107 Urine Mucus Many H Micro UA Comment Cath-culture ind Urine Culture Comments Cath-cult indicated 09/27/18 04:26 WBC RBC Hgb Hct MCV MCH MCHC RDW Plt Count MPV Neut % (Auto) Lymph % (Auto) Knox % (Auto) Eos % (Auto) Baso % (Auto) Neut # (Auto) Lymph # (Auto) [place] # (Auto) Eos # (Auto) Baso # (Auto) WBC Differential Differential Comment Sodium 139 Potassium 3.7 Chloride 107 Carbon Dioxide 26.6 Anion Gap 5 BUN 16 Creatinine 1.07 H Estimated GFR 59 L Random Glucose 96 Calcium 7.8 L Total Bilirubin AST ALT Alkaline Phosphatase Total Protein Albumin Urine Color Urine Clarity Urine pH Ur Specific [place] Urine Protein Urine Glucose (UA) Urine Ketones Urine Occult Blood Urine Nitrate Urine Bilirubin Urine Urobilinogen Ur Leukocyte Esterase Urine RBC Urine WBC Urine WBC Clumps Ur Squamous Epith Cells Amorphous Sediment Urine Bacteria Hyaline Casts Urine Mucus Micro UA Comment Urine Culture Comments <Will Ferreira - Last Filed: 09/27/18 08:44> Assessment and Plan (1) Choledocholithiasis with acute cholecystitis Status: Acute Code(s): K80.42 - Calculus of bile duct with acute cholecystitis without obstruction - Plan This patient is an 83-year-old female with past medical history significant for atrial fibrillation, anxiety, congestive heart failure, coronary artery disease, DVT, hypertension and Parkinson's disease. Surgical history significant for placement of coronary artery stent, hip replacement and knee surgery. Patient's daughter reports that patient presented to the emergency room at [facility] for evaluation of right upper quadrant abdominal pain. Daughter states pain started 2 days ago and has been accompanied by decreased appetite. Patient has had no complaints of nausea or active vomiting. Patient's daughter Arcelia denies patient has had fever or chills. She reports patient has had 2 days of constipation. She states patient normally has a soft bowel movement daily to every other day without any noted bleeding. She recalls last EGD and colonoscopy "many years ago". States to her best recollection, there were no abnormal findings. She endorses that patient does not utilize tobacco or alcohol products. Our service has been consulted to evaluate patient for choledocholithiasis found on CT. Choledocholithiasis Acute cholecystitis Patient presents to [place] emergency room with reported right upper quadrant abdominal pain times 2 days with decreased appetite. Denies nausea or vomiting or fever and chills 09/25/2018 CT abdomen and pelvis reveal the following: Biliary duct dilatation down to the level the pancreatic head and ampulla. There are some subtle increased density within the distal common bile duct related to either a stone or possible mass in this region. The gallbladder is distended. The gallbladder wall is thickened. Some superimposed cholecystitis may also be present. Scattered colonic diverticula without inflammatory change. Chronic mild compression deformities at T12, L1 and L4. These were present on the prior exam. -WBC 8.4 hemoglobin 12.7 hematocrit 38.1 platelet count 233 INR 1.1 -Creatinine 1.24 BUN 14 potassium 5.5 total bilirubin 1.8 AST 35 ALT 17 alk phos 83 lipase 100 albumin 3.2 -Urinalysis-positive nitrates moderate leukocyte esterase RBC 17 many bacteria, culture indicated Plan -Clear liquid diet -N.p.o. after midnight -Obtain consent for ERCP-ERCP in am -Electrolyte correction -Monitor labs -Analgesics and antiemetics as per attending -IV hydration -Continue IV antibiotics -Supportive care -Further recommendations to follow This patient has been seen by myself and Dr. Ferreira and this note is written on his behalf - Attending Attestation Dr. Ferreira <Roxy Neal - Last Filed: 09/26/18 19:37> (1) Choledocholithiasis with acute cholecystitis Status: Acute Code(s): K80.42 - Calculus of bile duct with acute cholecystitis without obstruction - Attending Attestation The patient is seen and examined. I agree with the assessment and recommendations above. <Will Ferreira - Last Filed: 09/27/18 08:44>
[2018-09-26] MEDS: Metoprolol Tartrate 25 MG Tablet PO SCH ×2 (10:44→20:15)
--- NOTE | 2018-09-26 13:27 | P.CONGS ---
[facility] Gen Surgery Consult Note Consult date: 09/26/18 Reason for consult: abdominal pain Requesting physician: Roxy Neal Narrative: CONSULTATION NOTE FOR SURGICAL ATTENDING, DR. ANNETTA SHAFFER This is an 83 year old female with a past medical history of hypertension, CAD, CHF, atrial fibrillation, anxiety, Parkinson's disease and DVT on Coumadin. The patient presented to the ED with RUQ abdominal pain since Sunday. Her daughter is present at bedside to provide history. A CT abdomen/pelvis was obtained which shows biliary duct dilation with questionable mass vs stone in the distal common bile duct; the gallbladder is distended with a thickened wall. Her WBC is normal. Her total bilirubin is slightly elevated at 1.8. She has been evaluated by the Gastroenterology team and an ERCP is planned for today. A General Surgery consultation has been requested. Review of Systems All other systems reviewed negative except as stated in [facility] PMF - History History Provided By: Family Member, Medical Record - Medical History Medical History: Medical History (Last Reviewed 09/26/18 @ 16:09 by Annetta Shaffer MD) A-fib Anxiety Congestive heart failure Coronary artery disease History of DVT (deep vein thrombosis) Hypertension Parkinson disease - Surgical History Surgical History: Surgical History (Last Reviewed 09/26/18 @ 16:09 by Annetta Shaffer MD) History of coronary artery stent placement History of hip replacement History of knee surgery - Family History Family History: Family History (Last Reviewed 09/26/18 @ 16:09 by Annetta Shaffer MD) Other Family history unknown - Social History I have reviewed the patient's Social History: Yes - Tobacco History Second Hand Smoke Exposure: Yes Tobacco Use In Past 30 Days: No Smoking Status: Never smoker - Alcohol History How Often Do You Have a Drink Containing Alcohol: Never - Substance Use History Substance History: No History of Abuse - Travel History Recent Travel in the [place] Within the Last 8 Weeks: No Recent Travel Out of the Country Within the Last 8 Weeks: No - Immunization History Tetanus Immunization: Unsure Hx Influenza Vaccine This Season: Yes Medications and Allergies Allergies Allergy/AdvReac Type Severity Reaction Status Date / Time propoxyphene Allergy Severe ITCHING Verified 09/25/18 22:25 Home Medications Medication Instructions Recorded Confirmed Type alprazolam 0.25 mg PO BID 09/25/18 09/25/18 History carbidopa-levodopa 1 tab PO BID 09/25/18 09/25/18 History diltiazem HCl [DILT-XR] 120 mg PO DAILY 09/25/18 09/25/18 History furosemide 40 mg PO DAILY 09/25/18 09/25/18 History hydrocodone-acetaminophen 1 tab PO Q6H 09/25/18 09/25/18 History lisinopril 5 mg PO DAILY 09/25/18 09/25/18 History metoprolol tartrate 25 mg PO BID 09/25/18 09/25/18 History potassium chloride 10 meq PO DAILY 09/25/18 09/25/18 History risperidone 0.25 mg PO DAILY 09/25/18 09/25/18 History temazepam 7.5 mg PO DAILY 09/25/18 09/25/18 History warfarin 4 mg PO DAILY 09/25/18 09/25/18 History Active Medications: Active Medications Acetaminophen (Tylenol) 650 mg PO Q4H PRN PRN Reason: Temp > 100.4 Last Admin: 09/26/18 05:38 Dose: 650 mg Al Hydroxide/Mg Hydroxide (Milk Of Magnesia Liq) 30 ml PO Q12H PRN PRN Reason: Mild Constipation Alprazolam (Xanax) 0.25 mg PO BID [facility] Last Admin: 09/26/18 08:30 Dose: Not Given Bisacodyl (Dulcolax Supp) 10 mg RECTAL DAILY PRN PRN Reason: SEVERE CONSITIPATION Furosemide (Lasix) 40 mg PO DAILY [facility] Last Admin: 09/26/18 08:29 Dose: Not Given Sodium Chloride (Ns Inj) 1,000 mls @ 70 mls/hr IV.CONT .[id number] [facility] Last Admin: 09/26/18 11:35 Dose: 70 mls/hr Piperacillin/Tazobactam/Dextrose (Zosyn 2.25 Gm Premix) 2.25 gm in 50 mls @ 100 mls/hr IV.SIG Q6H [facility] Last Infusion: 09/26/18 12:04 Dose: Infused Lactulose (Lactulose Liq) 30 ml PO DAILY PRN PRN Reason: SEVERE CONSITIPATION Lisinopril (Prinivil) 5 mg PO DAILY [facility] Last Admin: 09/26/18 08:30 Dose: Not Given Metoprolol Tartrate (Lopressor) 25 mg PO BID [facility] Last Admin: 09/26/18 10:44 Dose: 25 mg Morphine Sulfate (Morphine Inj) 2 mg IV.PUSH Q3H PRN PRN Reason: PAIN SCALE 1 TO 10 Non-Formulary Medication (Carbidopa-Levodopa [Carbidopa-Levodopa]) 1 tab PO BID [facility] Last Admin: 09/26/18 08:29 Dose: Not Given Non-Formulary Medication (Diltiazem Hcl [Dilt-Xr]) 120 mg PO DAILY [facility] Last Admin: 09/26/18 08:29 Dose: Not Given Ondansetron HCl (Zofran Inj) 4 mg IV.PUSH Q6H PRN PRN Reason: NAUSEA OR VOMITING Last Admin: 09/26/18 11:34 Dose: 4 mg Potassium Chloride (Klor-Con 10) 10 meq PO DAILY [facility] Last Admin: 09/26/18 08:29 Dose: Not Given Risperidone (Risperdal) 0.25 mg PO DAILY [facility] Last Admin: 09/26/18 08:30 Dose: Not Given Sennosides (Senokot) 17.2 mg PO Q12H PRN PRN Reason: Moderate Constipation Sodium Chloride (Ns Flush) 2 ml IV.FLUSH PRN PRN PRN Reason: FLUSH AFTER USING IV ACCESS Sodium Chloride (Ns Flush) 2 ml IV.FLUSH BID [facility] Last Admin: 09/26/18 08:29 Dose: Not Given Sodium Chloride (Ns Flush) 2 ml IV.FLUSH PRN PRN PRN Reason: FLUSH AFTER USING IV ACCESS Temazepam (Restoril) 7.5 mg PO DAILY [facility] Last Admin: 09/26/18 08:29 Dose: Not Given Exam Vital signs: Vital Signs 09/25/18 19:37 09/25/18 19:53 09/26/18 01:24 Temperature 100.2 F H 99.1 F Pulse Rate 88 91 H 75 Respiratory Rate 18 18 16 Blood Pressure 108/68 134/72 148/93 H Pulse Oximetry 96 98 95 09/26/18 01:47 09/26/18 04:00 09/26/18 06:24 Temperature 101.0 F H 99.5 F Pulse Rate 89 Respiratory Rate 16 16 Blood Pressure 127/73 Pulse Oximetry 96 09/26/18 07:30 09/26/18 08:00 09/26/18 12:00 Temperature 98.6 F 98.4 F 98.9 F Pulse Rate 72 73 66 Respiratory Rate 16 18 18 Blood Pressure 106/62 108/58 L 115/60 Pulse Oximetry 96 97 96 Intake & Output 09/25/18 09/26/18 09/26/18 18:59 06:59 18:59 Intake Total 100 / 100 1050 / 1050 Balance 100 / 100 1050 / 1050 Weight 63.5 kg 63.5 kg Intake: IV 100 / 100 1050 / 1050 NS Inj 1,000 ML @ 70 mls/hr IV. 1000 / 1000 CONT .[id number] [facility] Rx#:[id number] Zosyn 2.25 GM Premix 2.25 gm In 50 / 50 50 / 50 50 ml @ 100 mls/hr IV.SIG Q6H [facility] Rx#:[id number] Zosyn 3.375 GM Premix 3.375 gm 50 / 50 In 50 ml @ 100 mls/hr IV.SIG ONCE ONE Rx#:[id number] Other: Weight On Admission 63.5 kg Narrative: GENERAL: 83 year old female resting in bed in no acute distress. SKIN: Warm and dry. HEAD: Atraumatic. Normocephalic. EYES: Pupils equal and round. No scleral icterus. No injection or drainage. ENT: No nasal bleeding or discharge. Mucous membranes pink and moist. NECK: Trachea midline. CARDIOVASCULAR: Regular rate and rhythm. RESPIRATORY: No accessory muscle use. Clear to auscultation. Breath sounds equal bilaterally. GASTROINTESTINAL: Abdomen soft, nondistended. RUQ tenderness with palpation. No guarding. MUSCULOSKELETAL: Extremities without clubbing, cyanosis, or edema. No obvious deformities. NEUROLOGICAL: Awake and alert. No obvious cranial nerve deficits. Motor grossly within normal limits. Five out of 5 muscle strength in the arms and legs. Normal speech. PSYCHIATRIC: Difficult to access. Results - Labs 09/25/18 20:00 09/26/18 14:23 Laboratory Results - last 24 hr 09/25/18 09/25/18 09/25/18 20:00 20:00 20:00 WBC 8.4 RBC 5.05 Hgb 12.7 Hct 38.1 MCV 75.5 L MCH 25.1 L MCHC 33.3 RDW 14.8 Plt Count 233 MPV 8.8 Neut % (Auto) 74.9 H Lymph % (Auto) 16.6 Steele % (Auto) 7.8 Eos % (Auto) 0.4 Baso % (Auto) 0.3 Neut # (Auto) 6.3 Lymph # (Auto) 1.4 Steele # (Auto) 0.7 Eos # (Auto) 0.0 Baso # (Auto) 0.0 WBC Differential . Differential Comment Auto diff final PT 11.1 INR 1.1 APTT 24.7 Sodium 135 L Potassium 5.5 H Chloride 104 Carbon Dioxide 25.4 Anion Gap 6 BUN 14 Creatinine 1.24 H Estimated GFR 50 L Random Glucose 124 H Calcium 8.8 Total Bilirubin 1.8 H AST 35 ALT 17 Alkaline Phosphatase 83 Total Protein 8.7 H Albumin 3.2 L Lipase 100 Urine Color Urine Clarity Urine pH Ur Specific [place] Urine Protein Urine Glucose (UA) Urine Ketones Urine Occult Blood Urine Nitrate Urine Bilirubin Urine Urobilinogen Ur Leukocyte Esterase Urine RBC Urine WBC Urine WBC Clumps Ur Squamous Epith Cells Amorphous Sediment Urine Bacteria Hyaline Casts Urine Mucus Micro UA Comment Ur Microscopic Review Urine Culture Comments 09/25/18 21:04 WBC RBC Hgb Hct MCV MCH MCHC RDW Plt Count MPV Neut % (Auto) Lymph % (Auto) Steele % (Auto) Eos % (Auto) Baso % (Auto) Neut # (Auto) Lymph # (Auto) Steele # (Auto) Eos # (Auto) Baso # (Auto) WBC Differential Differential Comment PT INR APTT Sodium Potassium Chloride Carbon Dioxide Anion Gap BUN Creatinine Estimated GFR Random Glucose Calcium Total Bilirubin AST ALT Alkaline Phosphatase Total Protein Albumin Lipase Urine Color Nisreen Urine Clarity Cloudy H Urine pH 5.0 Ur Specific [place] 1.019 Urine Protein 500 or greater Urine Glucose (UA) Negative Urine Ketones Negative Urine Occult Blood Small H Urine Nitrate Positive H Urine Bilirubin Negative Urine Urobilinogen 4 or greater Ur Leukocyte Esterase Moderate H Urine RBC 17 H Urine WBC Urine WBC Clumps Many H Ur Squamous Epith Cells 2 Amorphous Sediment Rare H Urine Bacteria Many H Hyaline Casts 107 Urine Mucus Many H Micro UA Comment Cath-culture ind Ur Microscopic Review Not Reportable Urine Culture Comments Cath-cult indicated - Imaging Imaging: ITS Impressions Abdomen/Pelvis CT 09/25/18 19:58 CONCLUSION: 1. Biliary duct dilatation down to the level the pancreatic head and ampulla. There are some subtle increased density within the distal common bile duct related to either a stone or possible mass in this region. The gallbladder is distended. The gallbladder wall is thickened. Some superimposed cholecystitis may also be present. 2. Scattered colonic diverticula without inflammatory change. 3. Chronic mild compression deformities at T12, L1 and L4. These were present on the prior exam. Chest X-Ray 09/25/18 19:58 CONCLUSION: 1. No acute cardiopulmonary disease. 2. Old trauma involving the right clavicle and right humerus. CT scan - abdomen: report reviewed, image reviewed CT scan - pelvis: report reviewed, image reviewed Assessment and Plan - Assessment (1) Choledocholithiasis with acute cholecystitis Code(s): K80.42 - Calculus of bile duct with acute cholecystitis without obstruction Status: Acute Plan: 83 year old female with RUQ tenderness; choledocholithiasis -GI planning for ERCP -NPO -Continue IVF -Will follow up on results of ERCP -Patient would need Cardiac clearance for any surgical procedure -May benefit from cholecystostomy tube rather than laparoscopic cholecystectomy -Will continue to follow along with you -Thank you for this consult (2) Right upper quadrant pain Code(s): R10.11 - Right upper quadrant pain Status: Acute (3) Afib Code(s): I48.91 - Unspecified atrial fibrillation Status: Acute Qualifiers: Atrial fibrillation type: chronic Qualified Code(s): I48.2 - Chronic atrial fibrillation (4) Parkinsons Code(s): G20 - Parkinson's disease Status: Acute (5) Congestive heart failure Code(s): I50.9 - Heart failure, unspecified Status: Acute (6) 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 Shaffer Ms. Fitzpatrick and daughter at the bedside - Attending Attestation CONSULTATION NOTE FOR SURGICAL ATTENDING, DR. ANNETTA SHAFFER Patient lying in bed Appears very sleepy Family at bedside Patient has right upper quadrant pain Agree with ERCP With her multiple medical issues may be best to proceed with cholecystotomy tube depending on how the ERCP goes We will follow and evaluate tomorrow I agree with above assessment and plan. The exam, history, and the medical decision-making described in the above note were completed with the assistance of the mid-level provider. I reviewed and agree with the findings presented. I attest that I had a [id number] encounter with the patient on the same day, and personally performed and documented my assessment and findings in the medical record. The following services were provided during this hospital visit: Chart data review, vital sign assessments/reviewing monitor data Review of consultations notes if present. Medication orders/review and/or management Ordering and/or reviewing lab tests Ordering and/or interpreting/reviewing x-rays and/or diagnostic studies Care of the patient and discussion of the patient with the care team Documentation time To help prompt me to consider important information that might be impacting today's encounter and assessment, Information from prior notes written by myself or my colleagues may have been "brought forward/copy and pasted" into today's note.
[2018-09-26 15:20] LABS: Alanine Aminotransferase 10 U/L (10-53); Albumin 2.8 g/dL (3.4-5.0); Alkaline Phosphatase 71 U/L (45-117); Anion Gap 6 meq/L (5-15); Aspartate Aminotransferase 8 U/L (15-37); Blood Urea Nitrogen 17 mg/dL (7-18); Calcium 7.8 mg/dL (8.5-10.1); Carbon Dioxide 28.3 meq/L (21.0-32.0); Chloride 107 meq/L (98-107); Glomerular Filtration Rate 52 mL/min (>89); Glucose,Random 101 mg/dL (74-106); Potassium 3.9 meq/L (3.5-5.1); Sodium 141 meq/L (136-145); Total Protein 7.2 g/dL (6.4-8.2)
--- NOTE | 2018-09-26 16:24 | ECG ---
Date Performed: 09/26/2018 Time Performed: 10:50:26 PTAGE: 83 years EKG: Sinus rhythm LEFT ANTERIOR FASCICULAR BLOCK LEFT VENTRICULAR HYPERTROPHY AND ST-T CHANGE ABNORMAL ECG Since PREVIOUS TRACING , no significant change noted PREVIOUS TRACIN07/03/2014 16.26 DOCTOR: Pedro Shahid Interpretating Date/Time 09/26/2018 16:23:26
[2018-09-27] MEDS: Sod Chloride 0.9% Inj 1,000 ML IV.CONT SCH ×2 (05:58→18:25)
[2018-09-27] MEDS: Piperacil/Tazo 2.25 GM Premix 2.25 GM/50 ML PIGGYBACK IV.SIG SCH (05:58)
[2018-09-27 06:02] LABS: Baso % (Auto) 0.3 % (0.0-2.0); Eos % (Auto) 0.3 % (0.0-4.0); Hemoglobin 10.2 gm/dL (11.6-15.3); Lymph % (Auto) 12.4 % (9.0-44.0); Mean Corpuscular Hemoglobin 25.3 pg (27.0-34.0); Mean Corpuscular Volume 76.8 fL (80.0-100.0); Mono # (Auto) 0.8 th/mm3 (0.0-0.9); Mono % (Auto) 9.5 % (0.0-8.0); Neut # (Auto) 6.3 th/mm3 (1.8-7.7); Neut % (Auto) 77.5 % (16.0-70.0); Platelet Count 166 th/mm3 (150-450); Red Blood Count 4.04 mil/mm3 (4.00-5.30); Red Cell Distribution Width 14.6 % (11.6-17.2); White Blood Count 8.2 th/mm3 (4.0-11.0)
[2018-09-27 06:11] LABS: Calcium 7.8 mg/dL (8.5-10.1); Carbon Dioxide 26.6 meq/L (21.0-32.0); Potassium 3.7 meq/L (3.5-5.1)
[2018-09-27] MEDS: ALPRAZolam 0.25 MG Tablet PO SCH ×2 (10:46→23:04)
[2018-09-27] MEDS ORDERED: fentaNYL Citrate Inj 100 MCG/2 ML Ampul ONE (12:23)
--- NOTE | 2018-09-27 13:14 | P.PCN ---
Date of procedure: 09/27/18 Pre-op diagnosis: Choledocholithiasis with dilated bile duct Post-op diagnosis: same Procedure: Indication: Common bile duct stone and dilated common bile duct Procedure Performed: ERCP with sphincterotomy and balloon stone extraction. After informing the patient about procedure and possible complications consent was signed. history and physical were updated. Patient was taken to the procedure room and placed in position. Time out was completed. Adequate sedation was performed by anesthesia provider. ERCP, the scope was placed in the mouth advanced under video guide to the second portion of the duodenum, the scope was positioned in the second portion across from the ampulla. Good position with identification of the os was obtained. Using the sphincterotome and guidewire the scope was maneuvered until deep cannulation of the bile duct was obtained as demonstrated with flouro. The wire was advanced and the sphincterotome was advanced to the level of the bifucation. Contrast was injected to demonstrated a markedly dilated common and hepatic duct to 15-18 mm. No distinct filling defects were seen. Due to difficulty getting sphincterotome to advance over the wire initially a sphincterotomy was performed with a controlled cut. No bleeding was seen. Bile seen to flow freely from the bile duct after the sphincterotomy. The fully bowed sphincterotome was then able to be easily pulled through the sphincterotomy. With the wire in good position the sphincterotome was exchanged out for a 15 mm balloon. The balloon was then used to obtain a good cholangiogram and was then pulled back to sweep the duct. No debris was seen as the balloon was pulled through the duct. The scope was straightened, the balloon and wire removed. The scope was then withdrawn aborally without any immediate complication. Impression: Dilated common bile duct, no stone seen. Bile freely draining from bile duct. Recommendations; 1- Supportive care 2- ok to transfer to recovery area then discharge per protocol 3- Clear liquids today. If stable, advance to regular diet tomorrow as tolerated. Anesthesia: MAC Surgeon: Will Ferreira Flooring Machine Operator: Gaudencio Mendenhall Pathology: none sent Condition: stable Disposition: floor
[2018-09-27] MEDS: Metoprolol Tartrate 25 MG Tablet PO SCH ×2 (14:30→23:04)
[2018-09-27] MEDS: Lisinopril 5 MG Tablet PO SCH ×2 (14:31→18:42)
[2018-09-27] MEDS: Furosemide 40 MG Tablet PO SCH ×3 (14:32→18:42)
--- NOTE | 2018-09-27 14:42 | FL ---
EXAM DATE: 09/27/2018 1:12 PM EST AGE/SEX: 83 years / Female INDICATIONS: ERCP. CLINICAL DATA: This is the patient's initial encounter. Patient reports that signs and symptoms have been present for 1 day and indicates a pain score of Nonresponsive. MEDICAL/SURGICAL HISTORY: Non-responsive. Non-responsive. COMPARISON: No prior exams available for comparison. FLUORO TIME: 80.7 IMAGE COUNT: 1 RADIATION DOSE: [id number] DAP FINDINGS: An ERCP was performed by the ordering physician. The images demonstrate partial filling of a mildly dilated common duct on the single image provided. CONCLUSION: Mildly dilated common duct. Electronically signed by: Raphael Jung MD Board Certified Radiologist 09/27/2018 2:41 PM EST
[2018-09-27] MEDS ORDERED: Warfarin Consult Pharmacy OTHER PRN (15:24)
--- NOTE | 2018-09-27 15:26 | P.PN ---
Subjective Interval history: Follow-up visit for right upper quadrant abdominal pain. Patient is seen and examined resting in bed comfortably and appears to be in no acute distress, no family present. She is extremely hard of hearing and communicate simple questions with written note. She continues to complain of pain in her abdomen, denies any dysuria, no shortness of breath. Physical Exam Vital signs: Vital Signs 09/26/18 16:00 09/26/18 20:38 09/27/18 00:20 Temperature 99.6 F 100.2 F H 99.3 F Pulse Rate 69 73 62 Respiratory Rate 18 17 17 Blood Pressure 106/62 120/59 L 114/59 L Pulse Oximetry 95 92 L 100 09/27/18 04:15 09/27/18 08:00 09/27/18 13:17 Temperature 101 F H 100.6 F H 99.3 F Pulse Rate 77 86 84 Respiratory Rate 17 18 24 Blood Pressure 138/71 132/69 137/64 Pulse Oximetry 97 94 L 96 09/27/18 13:30 09/27/18 13:45 09/27/18 14:00 Temperature 100 F H Pulse Rate 84 83 77 Respiratory Rate 26 H 24 24 Blood Pressure 152/80 H 153/75 H 147/72 H Pulse Oximetry 96 95 97 09/27/18 14:36 Temperature Pulse Rate Respiratory Rate 16 Blood Pressure Pulse Oximetry Intake & Output 09/26/18 09/27/18 09/27/18 18:59 06:59 18:59 Intake Total 1100 / 1100 1890 / 1890 1300 / 1300 Balance 1100 / 1100 1890 / 1890 1300 / 1300 Weight 63.5 kg 76.2 kg Intake: IV 1100 / 1100 1050 / 1050 50 / 50 NS Inj 1,000 ML @ 70 mls/hr IV. 1000 / 1000 1000 / 1000 CONT .[id number] [facility] Rx#:[id number] Zosyn 2.25 GM Premix 2.25 gm In 100 / 100 50 / 50 50 / 50 50 ml @ 100 mls/hr IV.SIG Q6H [facility] Rx#:[id number] Oral 0 / 0 Anesthesia Amount 1250 / 1250 Other 840 / 840 Other: Other Intake Source Saline Solution # Voids 2 # Bowel Movements 0 Narrative: GENERAL: Well-developed, well-nourished elderly AA female in no acute distress. SKIN: Warm and dry. HEAD: Atraumatic. Normocephalic. EYES: Pupils equal and round. No scleral icterus. No injection or drainage. ENT: No nasal bleeding or discharge. Mucous membranes pink and moist. NECK: Trachea midline. No JVD. CARDIOVASCULAR: Regular rate and rhythm. RESPIRATORY: Clear to auscultation. Breath sounds equal bilaterally, nonlabored. GASTROINTESTINAL: Abdomen soft, non-tender, nondistended. + Bowel sounds. MUSCULOSKELETAL: Extremities without clubbing, cyanosis, or edema. No obvious deformities. NEUROLOGICAL: Awake, alert, poor historian. No obvious cranial nerve deficits, extremely hard of hearing. Motor grossly within normal limits. 4/5 muscle strength in the arms and legs. Normal speech. PSYCHIATRIC: Appropriate mood and affect; insight and judgment normal. Results - Labs CBC & Chem 7: 09/27/18 04:26 09/27/18 04:26 Laboratory Results - last 24 hr 09/26/18 09/27/18 09/27/18 14:23 04:26 04:26 WBC 8.2 RBC 4.04 Hgb 10.2 L D Hct 31.0 L MCV 76.8 L MCH 25.3 L MCHC 33.0 RDW 14.6 Plt Count 166 MPV 9.0 Neut % (Auto) 77.5 H Lymph % (Auto) 12.4 Leslie % (Auto) 9.5 H Eos % (Auto) 0.3 Baso % (Auto) 0.3 Neut # (Auto) 6.3 Lymph # (Auto) 1.0 Leslie # (Auto) 0.8 Eos # (Auto) 0.0 Baso # (Auto) 0.0 WBC Differential . Differential Comment Auto diff final Sodium 141 139 Potassium 3.9 D 3.7 Chloride 107 107 Carbon Dioxide 28.3 26.6 Anion Gap 6 5 BUN 17 16 Creatinine 1.20 H 1.07 H Estimated GFR 52 L 59 L Random Glucose 101 96 Calcium 7.8 L D 7.8 L Total Bilirubin 1.8 H AST 8 L ALT 10 Alkaline Phosphatase 71 Total Protein 7.2 D Albumin 2.8 L Microbiology 09/25/18 21:04 Catheterized Urine Urine Culture - Final Escherichia coli ESBL positive - Imaging Impressions GI Procedure 09/27/18 00:00 CONCLUSION: Mildly dilated common duct. Assessment and Plan - Plan 83-year-old -Tong[place] female with past medical history significant for HTN, CAD, CHF, A. fib, anxiety, Parkinson's disease, and DVT anticoagulated on Coumadin who presented to the emergency department for evaluation of right upper quadrant abdominal pain. Right upper quadrant abdominal pain -CT of the abdomen/pelvis significant for biliary duct dilatation down to the level of the pancreatic head and ampulla. There are some subtle increased density within the distal common bile duct related to either a stone or possible mass with gallbladder distention and wall thickening. Concern for superimposed cholecystitis -Gastroenterology consulted, appreciate assistance. s/p ERCP with mildly dilated common duct. -Recommendations to continue supportive care, trial of liquid diet today advance to regular tomorrow if tolerated. -General surgery consulted, appreciate assistance. -No leukocytosis been ongoing temperatures, DC IV Zosyn, dose of imipenem/ cilastan due to E. coli ESBL positive, ID consulted. UTI, + E. coli ESBL positive -Ongoing low-grade temps despite being on IV Zosyn. One-time dose of imipenem/ cilastan, consult infectious disease for further recommendations, appreciate assistance. Parkinson's disease -Continue carbidopa-levodopa Congestive heart failure -Continue home Lasix Hypertension/atrial fibrillation/CAD HX DVT -Continue home diltiazem, metoprolol and lisinopril -BP mildly elevated likely secondary to BP meds being held this morning for procedure. -Resume Coumadin, pharmacy consulted to assist with dosing. Anxiety Continue home Risperdal and temazepam DVT prophylaxis-continue Coumadin Discussed Condition With: Patient and epoxy specialist Planning: Will need evaluation by ID and clearance from GI prior to discharge.
--- NOTE | 2018-09-27 16:42 | P.PNGS ---
Subjective Interval history: DAILY PROGRESS NOTE FOR SURGICAL ATTENDING, DR. ANNETTA HENRIQUEZ Resting in bed Multiple family members at bedside Physical Exam Vital signs: Vital Signs 09/26/18 20:38 09/27/18 00:20 09/27/18 04:15 Temperature 100.2 F H 99.3 F 101 F H Pulse Rate 73 62 77 Respiratory Rate 17 17 17 Blood Pressure 120/59 L 114/59 L 138/71 Pulse Oximetry 92 L 100 97 09/27/18 08:00 09/27/18 13:17 09/27/18 13:30 Temperature 100.6 F H 99.3 F Pulse Rate 86 84 84 Respiratory Rate 18 24 26 H Blood Pressure 132/69 137/64 152/80 H Pulse Oximetry 94 L 96 96 09/27/18 13:45 09/27/18 14:00 09/27/18 14:36 Temperature 100 F H Pulse Rate 83 77 Respiratory Rate 24 24 16 Blood Pressure 153/75 H 147/72 H Pulse Oximetry 95 97 Intake & Output 09/26/18 09/27/18 09/27/18 18:59 06:59 18:59 Intake Total 1100 / 1100 1890 / 1890 1300 / 1300 Balance 1100 / 1100 1890 / 1890 1300 / 1300 Weight 63.5 kg 76.2 kg Intake: IV 1100 / 1100 1050 / 1050 50 / 50 NS Inj 1,000 ML @ 70 mls/hr IV. 1000 / 1000 1000 / 1000 CONT .[id number] Rx#:[id number] Zosyn 2.25 GM Premix 2.25 gm In 100 / 100 50 / 50 50 / 50 50 ml @ 100 mls/hr IV.SIG Q6H [facility] Rx#:[id number] Oral 0 / 0 Anesthesia Amount 1250 / 1250 Other 840 / 840 Other: Other Intake Source Saline Solution # Voids 2 Date of Last Bowel Movement 09/27/18 # Bowel Movements 0 # Incontinent Bowel Movements 1 Narrative: Alert and awake; TEJON RIGHT upper quadrant tenderness with palpation Results - Labs 09/27/18 04:26 09/27/18 04:26 Laboratory Results - last 24 hr 09/27/18 09/27/18 04:26 04:26 WBC 8.2 RBC 4.04 Hgb 10.2 L D Hct 31.0 L MCV 76.8 L MCH 25.3 L MCHC 33.0 RDW 14.6 Plt Count 166 MPV 9.0 Neut % (Auto) 77.5 H Lymph % (Auto) 12.4 [place] % (Auto) 9.5 H Eos % (Auto) 0.3 Baso % (Auto) 0.3 Neut # (Auto) 6.3 Lymph # (Auto) 1.0 [place] # (Auto) 0.8 Eos # (Auto) 0.0 Baso # (Auto) 0.0 WBC Differential . Differential Comment Auto diff final Sodium 139 Potassium 3.7 Chloride 107 Carbon Dioxide 26.6 Anion Gap 5 BUN 16 Creatinine 1.07 H Estimated GFR 59 L Random Glucose 96 Calcium 7.8 L - Imaging Imaging: ITS Impressions Abdomen/Pelvis CT 09/25/18 19:58 CONCLUSION: 1. Biliary duct dilatation down to the level the pancreatic head and ampulla. There are some subtle increased density within the distal common bile duct related to either a stone or possible mass in this region. The gallbladder is distended. The gallbladder wall is thickened. Some superimposed cholecystitis may also be present. 2. Scattered colonic diverticula without inflammatory change. 3. Chronic mild compression deformities at T12, L1 and L4. These were present on the prior exam. Chest X-Ray 09/25/18 19:58 CONCLUSION: 1. No acute cardiopulmonary disease. 2. Old trauma involving the right clavicle and right humerus. GI Procedure 09/27/18 00:00 CONCLUSION: Mildly dilated common duct. Assessment and Plan - Assessment (1) Choledocholithiasis with acute cholecystitis Code(s): K80.42 - Calculus of bile duct with acute cholecystitis without obstruction Status: Acute Plan: 83 year old female with RUQ tenderness; choledocholithiasis -S/p ERCP and sphincterotomy -Will see how patient does over the next 24-48 hours--- if she continues to have RUQ tenderness will plan for cholecystostomy tube -Patient is a poor surgical candidate Okay for clear liquids (2) Right upper quadrant pain Code(s): R10.11 - Right upper quadrant pain Status: Acute (3) Afib Code(s): I48.91 - Unspecified atrial fibrillation Status: Acute (4) Parkinsons Code(s): G20 - Parkinson's disease Status: Acute (5) Congestive heart failure Code(s): I50.9 - Heart failure, unspecified Status: Acute (6) Current use of intermediate accountant anticoagulation Code(s): Z79.01 - intermediate card tender (current) use of anticoagulants Status: Acute - Attending Attestation NOTE FOR SURGICAL ATTENDING, DR. ANNETTA HENRIQUEZ I agree with above assessment and plan. The exam, history, and the medical decision-making described in the above note were completed with the assistance of the mid-level provider. I reviewed and agree with the findings presented. I attest that I had a [id number] encounter with the patient on the same day, and personally performed and documented my assessment and findings in the medical record. The following services were provided during this hospital visit: Chart data review, vital sign assessments/reviewing monitor data Review of consultations notes if present. Medication orders/review and/or management Ordering and/or reviewing lab tests Ordering and/or interpreting/reviewing x-rays and/or diagnostic studies Care of the patient and discussion of the patient with the care team Documentation time To help prompt me to consider important information that might be impacting today's encounter and assessment, Information from prior notes written by myself or my colleagues may have been "brought forward/copy and pasted" into today's note. (3) Afib Qualifiers: Atrial fibrillation type: chronic Qualified Code(s): I48.2 - Chronic atrial fibrillation
--- NOTE | 2018-09-27 17:11 | P.CONID ---
History of Present Illness Service: Infectious disease Consult date: 09/27/18 Requesting Physician: Miky Banks Reason for Consult: Evaluation and management of acute cholecystitis, ESBL E. coli UTI Primary Care Provider: UNKNOWN History of Present Illness: Ms. Fitzpatrick is an 83-year-old -[place]er female with past medical history of hypertension, coronary artery disease, CHF, atrial fibrillation, Parkinson's disease and DVT on Coumadin. Most of the history was obtained by medical records as the nephew at bedside did not know much about the patient. He does report that patient lives with her daughter at home. She is able to feed herself and walk around the house using a walker. Patient was doing fairly okay reportedly and then had acute onset of right upper quadrant abdominal pain earlier this week. Due to worsening abdominal pain as well as change in mentation patient was brought to the hospital. A CT of the abdomen pelvis is obtained which shows ductal dilatation with questionable mass versus stone in the distal CBD, the gallbladder with a distended and thickened wall his WBC on admission was normal total bili was elevated at 1.8. General surgery as well as gastroenterology are on board. I discussed the case with general surgery and due to her advanced age as well as comorbid conditions a plan for cholecystostomy tube is being considered. At the time of my evaluation patient is on the sixth floor hemodynamically stable. Laying in bed appears to be comfortable. Infectious diseases consulted for evaluation and management of ESBL E. coli UTI as well as acute cholecystitis. Based on her initial presentation it appears that she likely came in for the acute cholecystitis episode but since patient is growing ESBL E. coli in the urine she likely could be colonized with the same and therefore escalation of the regimen to ertapenem would be appropriate. Past medical history: A-fib Anxiety Congestive heart failure Coronary artery disease History of DVT (deep vein thrombosis) Hypertension Parkinson disease Past surgical history: History of coronary artery stent placement History of hip replacement History of knee surgery Review of Systems All other systems reviewed negative except as stated in HPI, unobtainable due to mental condition PMFSH - History History Provided By: Family Member - Medical History Medical History: Medical History (Last Reviewed 09/26/18 @ 16:09 by Dean Shaffer MD) A-fib Anxiety Congestive heart failure Coronary artery disease History of DVT (deep vein thrombosis) Hypertension Parkinson disease - Surgical History Surgical History: Surgical History (Last Reviewed 09/26/18 @ 16:09 by Dean Shaffer MD) History of coronary artery stent placement History of hip replacement History of knee surgery - Family History Family History: Family History (Last Reviewed 09/26/18 @ 16:09 by Dean Shaffer MD) Other Family history unknown - Tobacco History Second Hand Smoke Exposure: No Tobacco Use In Past 30 Days: No Smoking Status: Never smoker - Alcohol History How Often Do You Have a Drink Containing Alcohol: Never - Substance Use History Substance History: No History of Abuse - Travel History Recent Travel in the [place] Within the Last 8 Weeks: No Recent Travel Out of the Country Within the Last 8 Weeks: No - Immunization History Tetanus Immunization: Unsure Hx Influenza Vaccine This Season: Yes Medications and Allergies Active Medications: Active Medications Acetaminophen (Tylenol) 650 mg PO Q4H PRN PRN Reason: Temp > 100.4 Last Admin: 09/26/18 20:14 Dose: 650 mg Al Hydroxide/Mg Hydroxide (Milk Of Magnesia Liq) 30 ml PO Q12H PRN PRN Reason: Mild Constipation Alprazolam (Xanax) 0.25 mg PO BID [facility] Last Admin: 09/27/18 10:46 Dose: Not Given Bisacodyl (Dulcolax Supp) 10 mg RECTAL DAILY PRN PRN Reason: SEVERE CONSITIPATION Carbidopa/Levodopa (Simemet 10/100 Mg) 1 tab PO BID [facility] Last Admin: 09/27/18 10:46 Dose: Not Given Ertapenem (Invanz Inj) 1,000 mg IV.SIG Q24H [facility] Furosemide (Lasix) 40 mg PO DAILY [facility] Last Admin: 09/27/18 14:32 Dose: Not Given Sodium Chloride (Ns Inj) 1,000 mls @ 70 mls/hr IV.CONT .[id number] [facility] Last Admin: 09/27/18 05:58 Dose: 70 mls/hr Lactulose (Lactulose Liq) 30 ml PO DAILY PRN PRN Reason: SEVERE CONSITIPATION Lisinopril (Prinivil) 5 mg PO DAILY [facility] Last Admin: 09/27/18 14:31 Dose: Not Given Metoprolol Tartrate (Lopressor) 25 mg PO BID [facility] Last Admin: 09/27/18 14:30 Dose: Not Given Miscellaneous Information (Misc Nursing Information) 1 each OTHER UNSCH PRN PRN Reason: SEE LABEL COMMENTS Stop: 09/28/18 13:20 Morphine Sulfate (Morphine Inj) 2 mg IV.PUSH Q3H PRN PRN Reason: PAIN SCALE 1 TO 10 Non-Formulary Medication (Diltiazem Hcl [Dilt-Xr]) 120 mg PO DAILY [facility] Last Admin: 09/26/18 08:29 Dose: Not Given Ondansetron HCl (Zofran Inj) 4 mg IV.PUSH Q6H PRN PRN Reason: NAUSEA OR VOMITING Last Admin: 09/26/18 11:34 Dose: 4 mg Pharmacy Profile Note (Coumadin Consult Pharmacy) 1 each OTHER UNSCH PRN PRN Reason: PHARMACY DOCUMENTATION Potassium Chloride (Klor-Con 10) 10 meq PO DAILY [facility] Last Admin: 09/26/18 08:29 Dose: Not Given Risperidone (Risperdal) 0.25 mg PO DAILY [facility] Last Admin: 09/27/18 16:00 Dose: Not Given Sennosides (Senokot) 17.2 mg PO Q12H PRN PRN Reason: Moderate Constipation Sodium Chloride (Ns Flush) 2 ml IV.FLUSH PRN PRN PRN Reason: FLUSH AFTER USING IV ACCESS Sodium Chloride (Ns Flush) 2 ml IV.FLUSH BID [facility] Last Admin: 09/27/18 10:45 Dose: Not Given Sodium Chloride (Ns Flush) 2 ml IV.FLUSH PRN PRN PRN Reason: FLUSH AFTER USING IV ACCESS Temazepam (Restoril) 7.5 mg PO DAILY [facility] Last Admin: 09/27/18 14:31 Dose: Not Given Warfarin Sodium (Coumadin) 4 mg PO DAILY@1600 [facility] Allergies Allergy/AdvReac Type Severity Reaction Status Date / Time propoxyphene Allergy Severe ITCHING Verified 09/25/18 22:25 Home Medications Medication Instructions Recorded Confirmed Type alprazolam 0.25 mg PO BID 09/25/18 09/25/18 History carbidopa-levodopa 1 tab PO BID 09/25/18 09/25/18 History diltiazem HCl [DILT-XR] 120 mg PO DAILY 09/25/18 09/25/18 History furosemide 40 mg PO DAILY 09/25/18 09/25/18 History hydrocodone-acetaminophen 1 tab PO Q6H 09/25/18 09/25/18 History lisinopril 5 mg PO DAILY 09/25/18 09/25/18 History metoprolol tartrate 25 mg PO BID 09/25/18 09/25/18 History potassium chloride 10 meq PO DAILY 09/25/18 09/25/18 History risperidone 0.25 mg PO DAILY 09/25/18 09/25/18 History temazepam 7.5 mg PO DAILY 09/25/18 09/25/18 History warfarin 4 mg PO DAILY 09/25/18 09/25/18 History Exam Vital signs: Vital Signs 09/26/18 20:38 09/27/18 00:20 09/27/18 04:15 Temperature 100.2 F H 99.3 F 101 F H Pulse Rate 73 62 77 Respiratory Rate 17 17 17 Blood Pressure 120/59 L 114/59 L 138/71 Pulse Oximetry 92 L 100 97 09/27/18 08:00 09/27/18 13:17 09/27/18 13:30 Temperature 100.6 F H 99.3 F Pulse Rate 86 84 84 Respiratory Rate 18 24 26 H Blood Pressure 132/69 137/64 152/80 H Pulse Oximetry 94 L 96 96 09/27/18 13:45 09/27/18 14:00 09/27/18 14:36 Temperature 100 F H Pulse Rate 83 77 Respiratory Rate 24 24 16 Blood Pressure 153/75 H 147/72 H Pulse Oximetry 95 97 Intake & Output 09/26/18 09/27/18 09/27/18 18:59 06:59 18:59 Intake Total 1100 / 1100 1890 / 1890 1300 / 1300 Balance 1100 / 1100 1890 / 1890 1300 / 1300 Weight 63.5 kg 76.2 kg Intake: IV 1100 / 1100 1050 / 1050 50 / 50 NS Inj 1,000 ML @ 70 mls/hr IV. 1000 / 1000 1000 / 1000 CONT .[id number] [facility] Rx#:[id number] Zosyn 2.25 GM Premix 2.25 gm In 100 / 100 50 / 50 50 / 50 50 ml @ 100 mls/hr IV.SIG Q6H [facility] Rx#:[id number] Oral 0 / 0 Anesthesia Amount 1250 / 1250 Other 840 / 840 Other: Other Intake Source Saline Solution # Voids 2 Date of Last Bowel Movement 09/27/18 # Bowel Movements 0 # Incontinent Bowel Movements 1 Narrative: GENERAL: Well-nourished well-developed, not in acute distress SKIN: Cool and dry, no generalized rash HEAD: Atraumatic. Normocephalic. No temporal or scalp tenderness. EYES: Pupils equal round and reactive. Scleral icterus. No injection or drainage. No petechia ENT: Nothing abnormal detected NECK: Trachea midline. Supple, nontender, no meningeal signs. CARDIOVASCULAR: HS audible. RESPIRATORY: Clear to auscultation bilaterally. GASTROINTESTINAL: Abdomen soft tenderness noted in right upper quadrant but no guarding or rigidity. MUSCULOSKELETAL: Extremities without clubbing, cyanosis. NEUROLOGICAL: Alert oriented 3. Nonfocal. Psych cooperative IV line sites ok. Results - Labs CBC & Chem 7: 09/27/18 04:26 09/27/18 04:26 Labs: Laboratory Results - last 24 hr 09/27/18 09/27/18 04:26 04:26 WBC 8.2 RBC 4.04 Hgb 10.2 L D Hct 31.0 L MCV 76.8 L MCH 25.3 L MCHC 33.0 RDW 14.6 Plt Count 166 MPV 9.0 Neut % (Auto) 77.5 H Lymph % (Auto) 12.4 [place] % (Auto) 9.5 H Eos % (Auto) 0.3 Baso % (Auto) 0.3 Neut # (Auto) 6.3 Lymph # (Auto) 1.0 [place] # (Auto) 0.8 Eos # (Auto) 0.0 Baso # (Auto) 0.0 WBC Differential . Differential Comment Auto diff final Sodium 139 Potassium 3.7 Chloride 107 Carbon Dioxide 26.6 Anion Gap 5 BUN 16 Creatinine 1.07 H Estimated GFR 59 L Random Glucose 96 Calcium 7.8 L - Imaging Impressions GI Procedure 09/27/18 00:00 CONCLUSION: Mildly dilated common duct. Assessment and Plan - Plan Possible sepsis present on admission Rule out bacteremia Source is likely acute cholecystitis. Patient could be colonized with ESBL in the GI tract as well. ESBL E. coli in the urine no suprapubic tenderness or symptoms but in view of fevers we will continue to treat Acute metabolic encephalopathy likely secondary to sepsis Acute renal failure prerenal versus sepsis Recommendations Discontinue imipenem Stat blood cultures x2 Start ertapenem IV which should cover the ESBL E. coli as well as anaerobes. Case discussed with general surgeon plan for cholecystostomy Follow blood cultures Follow clinical course Dr. Plata covering for me this weekend
[2018-09-27] MEDS: DILTIAZEM HCL 120 MG PO SCH (17:16)
[2018-09-27] MEDS ORDERED: ASP: Documented ESBL, MDR A baumannii or P. aeruginosa OTHER PRN (17:57)
[2018-09-28] MEDS: Piperacil/Tazo 2.25 GM Premix 2.25 GM/50 ML PIGGYBACK IV.SIG SCH (06:34)
[2018-09-28] MEDS: Sod Chloride 0.9% Inj 1,000 ML IV.CONT SCH ×3 (07:00→21:26)
[2018-09-28 07:14] LABS: INR 1.2 Ratio; Prothrombin Time 12.1 sec (9.8-11.6)
[2018-09-28] MEDS: Furosemide 40 MG Tablet PO SCH (09:17)
[2018-09-28] MEDS: Metoprolol Tartrate 25 MG Tablet PO SCH ×2 (09:17→21:28)
[2018-09-28] MEDS: ALPRAZolam 0.25 MG Tablet PO SCH ×2 (09:17→21:28)
[2018-09-28] MEDS: dilTIAZem CD 120 MG Capsule PO SCH (09:17)
[2018-09-28] MEDS: Lisinopril 5 MG Tablet PO SCH (09:17)
--- NOTE | 2018-09-28 10:09 | P.PN ---
Subjective Interval history: Follow-up visit for right upper quadrant abdominal pain, and UTI. Patient seen and examined awake and alert sitting up in bed with daughter Susy at bedside. Patient extremely hard of hearing but answers pain when asked regarding her abdomen, facial grimace with palpation to right upper quadrant. Daughter reports patient had a large bowel movement overnight, believes her abdominal pain may also be related to constipation which she had. No reports of nausea, vomiting or cough. Gave update to daughter Susy at bedside as well as Arcelia, patient's other daughter via telephone. Both daughters are in agreement that surgical intervention regarding cholecystectomy would not be a preferred option due to her age and heart problems. Patient has been asking for regular food per daughter. Nurse reports patient tolerated clear liquid diet yesterday well. Physical Exam Vital signs: Vital Signs 09/27/18 13:17 09/27/18 13:30 09/27/18 13:45 Temperature 99.3 F Pulse Rate 84 84 83 Respiratory Rate 24 26 H 24 Blood Pressure 137/64 152/80 H 153/75 H Pulse Oximetry 96 96 95 09/27/18 14:00 09/27/18 14:36 09/27/18 16:00 Temperature 100 F H 99.4 F Pulse Rate 77 58 L Respiratory Rate 24 16 17 Blood Pressure 147/72 H 145/68 H Pulse Oximetry 97 99 09/27/18 19:59 09/27/18 23:00 09/28/18 04:06 Temperature 99.1 F 99.5 F 98.2 F Pulse Rate 74 67 55 L Respiratory Rate 18 18 18 Blood Pressure 122/59 L 118/65 132/65 Pulse Oximetry 100 98 99 09/28/18 08:00 Temperature 99.9 F H Pulse Rate 55 L Respiratory Rate 18 Blood Pressure 117/55 L Pulse Oximetry 100 Intake & Output 09/27/18 09/28/18 09/28/18 18:59 06:59 18:59 Intake Total 1300 / 1300 1680 / 1680 Balance 1300 / 1300 1680 / 1680 Intake: IV 50 / 50 1200 / 1200 NS Inj 1,000 ML @ 70 mls/hr IV. 1000 / 1000 CONT .[id number] [facility] Rx#:[id number] INVanz Inj 1,000 MG In NS Inj 100 / 100 100 ML @ 100 mls/hr IV.SIG Q24H [facility] Rx#:[id number] Zosyn 2.25 GM Premix 2.25 gm In 50 / 50 50 ml @ 100 mls/hr IV.SIG Q6H [facility] Rx#:[id number] Oral 480 / 480 Anesthesia Amount 1250 / 1250 Other: # Voids 1 # Incontinent Voids 1 Date of Last Bowel Movement 09/27/18 09/27/18 # Bowel Movements 0 # Incontinent Bowel Movements 1 Narrative: GENERAL: Well-developed, well-nourished elderly AA female in no acute distress. SKIN: Warm and dry. HEAD: Atraumatic. Normocephalic. EYES: Pupils equal and round. No scleral icterus. No injection or drainage. ENT: No nasal bleeding or discharge. Mucous membranes pink and moist. NECK: Trachea midline. CARDIOVASCULAR: Regular rate and rhythm. RESPIRATORY: Clear to auscultation. Breath sounds equal bilaterally, nonlabored. GASTROINTESTINAL: Abdomen soft, non-tender, nondistended. + Bowel sounds. MUSCULOSKELETAL: Extremities without clubbing, cyanosis, or edema. No obvious deformities. NEUROLOGICAL: Awake, alert, poor historian. No obvious cranial nerve deficits, extremely hard of hearing. Motor grossly within normal limits. Normal speech. PSYCHIATRIC: Poor insight and judgment. Results - Labs CBC & Chem 7: 09/27/18 04:26 09/27/18 04:26 Laboratory Results - last 24 hr 09/28/18 05:05 PT 12.1 H INR 1.2 Microbiology 09/25/18 21:04 Catheterized Urine Urine Culture - Final Escherichia coli ESBL positive - Imaging Impressions GI Procedure 09/27/18 00:00 CONCLUSION: Mildly dilated common duct. Assessment and Plan - Plan 83-year-old -[place] Citizen female with past medical history significant for HTN, CAD, CHF, A. fib, anxiety, Parkinson's disease, and DVT anticoagulated on Coumadin who presented to the emergency department for evaluation of right upper quadrant abdominal pain. Right upper quadrant abdominal pain -CT of the abdomen/pelvis significant for biliary duct dilatation down to the level of the pancreatic head and ampulla. There are some subtle increased density within the distal common bile duct related to either a stone or possible mass with gallbladder distention and wall thickening. Concern for superimposed cholecystitis -Gastroenterology consulted, appreciate assistance. s/p ERCP with mildly dilated common duct. -Tolerating clear liquids and advance diet today to regulars. Does not appear to be in any pain. -General surgery has signed off and recommend follow-up with GI after ERCP with sphincterectomy, appreciate assistance and recommendations. -GI has also signed off and cleared patient for discharge, appreciate assistance. UTI, + E. coli ESBL positive -Received one-time dose of imipenem/cilastan, consult for ID placed. Patient switched over to ertapenem by ID yesterday with pending blood cultures. -Continue antibiotics as recommended by infectious disease, appreciate assistance. -T-max today 100.6 Parkinson's disease -Continue carbidopa-levodopa Congestive heart failure -Continue home Lasix Hypertension/atrial fibrillation/CAD HX DVT -Continue home diltiazem, metoprolol and lisinopril -BP stable today. -Coumadin has been resumed, pharmacy to assist with dosing. Anxiety Continue home Risperdal and temazepam DVT prophylaxis-continue Coumadin Discussed Condition With: Discussed with patient, RN, daughters. Discharge Planning: Will need final recommendations by ID prior to discharge.
--- NOTE | 2018-09-28 11:27 | P.PNGS ---
Subjective Patient reports: feels better (The patient's family members at the bedside. She indicates the patient had a large bowel movement last night. Her pain is resolved. She is eating a banana at this time completing her entire breakfast.) Physical Exam Vital signs: Vital Signs 09/27/18 13:17 09/27/18 13:30 09/27/18 13:45 Temperature 99.3 F Pulse Rate 84 84 83 Respiratory Rate 24 26 H 24 Blood Pressure 137/64 152/80 H 153/75 H Pulse Oximetry 96 96 95 09/27/18 14:00 09/27/18 14:36 09/27/18 16:00 Temperature 100 F H 99.4 F Pulse Rate 77 58 L Respiratory Rate 24 16 17 Blood Pressure 147/72 H 145/68 H Pulse Oximetry 97 99 09/27/18 19:59 09/27/18 23:00 09/28/18 04:06 Temperature 99.1 F 99.5 F 98.2 F Pulse Rate 74 67 55 L Respiratory Rate 18 18 18 Blood Pressure 122/59 L 118/65 132/65 Pulse Oximetry 100 98 99 09/28/18 08:00 Temperature 99.9 F H Pulse Rate 55 L Respiratory Rate 18 Blood Pressure 117/55 L Pulse Oximetry 100 Intake & Output 09/27/18 09/28/18 09/28/18 18:59 06:59 18:59 Intake Total 1300 / 1300 1680 / 1680 240 / 240 Balance 1300 / 1300 1680 / 1680 240 / 240 Intake: IV 50 / 50 1200 / 1200 NS Inj 1,000 ML @ 70 mls/hr IV. 1000 / 1000 CONT .[id number] JESSICA Rx#:[id number] INVanz Inj 1,000 MG In NS Inj 100 / 100 100 ML @ 100 mls/hr IV.SIG Q24H JESSICA Rx#:[id number] Zosyn 2.25 GM Premix 2.25 gm In 50 / 50 50 ml @ 100 mls/hr IV.SIG Q6H JESSICA Rx#:[id number] Oral 480 / 480 240 / 240 Anesthesia Amount 1250 / 1250 Other: # Voids 1 # Incontinent Voids 1 Date of Last Bowel Movement 09/27/18 09/27/18 # Bowel Movements 0 # Incontinent Bowel Movements 1 Narrative: Her abdomen is completely soft, nondistended, nontender to palpation. Results - Labs 09/27/18 04:26 09/27/18 04:26 Laboratory Results - last 24 hr 09/28/18 05:05 PT 12.1 H INR 1.2 - Imaging Imaging: ITS Impressions Abdomen/Pelvis CT 09/25/18 19:58 CONCLUSION: 1. Biliary duct dilatation down to the level the pancreatic head and ampulla. There are some subtle increased density within the distal common bile duct related to either a stone or possible mass in this region. The gallbladder is distended. The gallbladder wall is thickened. Some superimposed cholecystitis may also be present. 2. Scattered colonic diverticula without inflammatory change. 3. Chronic mild compression deformities at T12, L1 and L4. These were present on the prior exam. Chest X-Ray 09/25/18 19:58 CONCLUSION: 1. No acute cardiopulmonary disease. 2. Old trauma involving the right clavicle and right humerus. GI Procedure 09/27/18 00:00 CONCLUSION: Mildly dilated common duct. Assessment and Plan - Assessment (1) Choledocholithiasis with acute cholecystitis Code(s): K80.42 - Calculus of bile duct with acute cholecystitis without obstruction Status: Acute Plan: 83 year old female with RUQ tenderness; choledocholithiasis -S/p ERCP and sphincterotomy -Will see how patient does over the next 24-48 hours--- if she continues to have RUQ tenderness will plan for cholecystostomy tube -Patient is a poor surgical candidate Okay for clear liquids (2) Right upper quadrant pain Code(s): R10.11 - Right upper quadrant pain Status: Acute (3) Afib Code(s): I48.91 - Unspecified atrial fibrillation Status: Acute (4) Parkinsons Code(s): G20 - Parkinson's disease Status: Acute (5) Congestive heart failure Code(s): I50.9 - Heart failure, unspecified Status: Acute (6) Current use of chcf anticoagulation Code(s): Z79.01 - terminologist (current) use of anticoagulants Status: Acute - Plan Her symptoms appear to have completely resolved. There is no indication for surgery at this time. Surgery will sign off. Please call us if needed. I discussed this in detail with the patient's family at bedside. She is presently undergoing antibiotic therapy for ESBL infection in the urine. This needs to be completed at the discretion of the primary care team. She would require follow-up with GI after ERCP with sphincterotomy. Discussed Condition With: Patient's family at bedside. (3) Afib Qualifiers: Atrial fibrillation type: chronic Qualified Code(s): I48.2 - Chronic atrial fibrillation
--- NOTE | 2018-09-28 13:39 | P.PNGI ---
Subjective Interval history: Pt is resting in bed, doing good, not voicing any complaints, wants to go home. <Art Siddiqui - Last Filed: 09/28/18 13:33> Physical Exam Vital signs: Vital Signs 09/27/18 13:45 09/27/18 14:00 09/27/18 14:36 Temperature 100 F H Pulse Rate 83 77 Respiratory Rate 24 24 16 Blood Pressure 153/75 H 147/72 H Pulse Oximetry 95 97 09/27/18 16:00 09/27/18 19:59 09/27/18 23:00 Temperature 99.4 F 99.1 F 99.5 F Pulse Rate 58 L 74 67 Respiratory Rate 17 18 18 Blood Pressure 145/68 H 122/59 L 118/65 Pulse Oximetry 99 100 98 09/28/18 04:06 09/28/18 08:00 09/28/18 12:00 Temperature 98.2 F 99.9 F H 100.6 F H Pulse Rate 55 L 55 L 73 Respiratory Rate 18 18 20 Blood Pressure 132/65 117/55 L 125/68 Pulse Oximetry 99 100 97 Intake & Output 09/27/18 09/28/18 09/28/18 18:59 06:59 18:59 Intake Total 1300 / 1300 1680 / 1680 240 / 240 Balance 1300 / 1300 1680 / 1680 240 / 240 Intake: IV 50 / 50 1200 / 1200 NS Inj 1,000 ML @ 70 mls/hr IV. 1000 / 1000 CONT .[id number] JESSICA Rx#:[id number] INVanz Inj 1,000 MG In NS Inj 100 / 100 100 ML @ 100 mls/hr IV.SIG Q24H JESSICA Rx#:[id number] Zosyn 2.25 GM Premix 2.25 gm In 50 / 50 50 ml @ 100 mls/hr IV.SIG Q6H JESSICA Rx#:[id number] Oral 480 / 480 240 / 240 Anesthesia Amount 1250 / 1250 Other: # Voids 1 # Incontinent Voids 1 Date of Last Bowel Movement 09/27/18 09/27/18 # Bowel Movements 0 # Incontinent Bowel Movements 1 - Constitutional no acute distress - Routine HEENT Exam Head: Present: normocephalic - Routine Respiratory Exam Present: CTA bilaterally - Routine Cardiovascular Exam Present: RRR - Routine Abdominal Exam Present: soft, normoactive bowel sounds. Absent: tenderness, distended - Routine Skin Exam Present: intact, dry. Absent: jaundice - Routine Neurological Exam Present: alert, oriented X3 <Art Siddiqui - Last Filed: 09/28/18 13:33> Vital signs: Vital Signs 09/27/18 19:59 09/27/18 23:00 09/28/18 04:06 Temperature 99.1 F 99.5 F 98.2 F Pulse Rate 74 67 55 L Respiratory Rate 18 18 18 Blood Pressure 122/59 L 118/65 132/65 Pulse Oximetry 100 98 99 09/28/18 08:00 09/28/18 12:00 09/28/18 15:00 Temperature 99.9 F H 100.6 F H 98.5 F Pulse Rate 55 L 73 68 Respiratory Rate 18 20 17 Blood Pressure 117/55 L 125/68 117/67 Pulse Oximetry 100 97 97 Intake & Output 09/27/18 09/28/18 09/28/18 18:59 06:59 18:59 Intake Total 1300 / 1300 1680 / 1680 240 / 240 Balance 1300 / 1300 1680 / 1680 240 / 240 Intake: IV 50 / 50 1200 / 1200 NS Inj 1,000 ML @ 70 mls/hr IV. 1000 / 1000 CONT .[id number] JESSICA Rx#:[id number] INVanz Inj 1,000 MG In NS Inj 100 / 100 100 ML @ 100 mls/hr IV.SIG Q24H JESSICA Rx#:[id number] Zosyn 2.25 GM Premix 2.25 gm In 50 / 50 50 ml @ 100 mls/hr IV.SIG Q6H JESSICA Rx#:[id number] Oral 480 / 480 240 / 240 Anesthesia Amount 1250 / 1250 Other: # Voids 1 # Incontinent Voids 1 Date of Last Bowel Movement 09/27/18 09/27/18 # Bowel Movements 0 # Incontinent Bowel Movements 1 <Will Ferreira - Last Filed: 09/28/18 16:02> Results - Labs CBC & Chem 7: 09/27/18 04:26 09/27/18 04:26 Laboratory Results - last 24 hr 09/28/18 05:05 PT 12.1 H INR 1.2 Microbiology 09/27/18 17:38 Blood - Peripheral Aerobic Blood Culture - Preliminary No growth in 1 day 09/27/18 17:38 Blood - Peripheral Anaerobic Blood Culture - Preliminary No growth in 1 day 09/27/18 17:43 Blood - Peripheral Aerobic Blood Culture - Preliminary No growth in 1 day 09/27/18 17:43 Blood - Peripheral Anaerobic Blood Culture - Preliminary No growth in 1 day 09/25/18 21:04 Catheterized Urine Urine Culture - Final Escherichia coli ESBL positive - Imaging Impressions GI Procedure 09/27/18 00:00 CONCLUSION: Mildly dilated common duct. <Art Siddiqui - Last Filed: 09/28/18 13:33> - Labs CBC & Chem 7: 09/27/18 04:26 09/27/18 04:26 Laboratory Results - last 24 hr 09/28/18 05:05 PT 12.1 H INR 1.2 Microbiology 09/27/18 17:38 Blood - Peripheral Aerobic Blood Culture - Preliminary No growth in 1 day 09/27/18 17:38 Blood - Peripheral Anaerobic Blood Culture - Preliminary No growth in 1 day 09/27/18 17:43 Blood - Peripheral Aerobic Blood Culture - Preliminary No growth in 1 day 09/27/18 17:43 Blood - Peripheral Anaerobic Blood Culture - Preliminary No growth in 1 day 09/25/18 21:04 Catheterized Urine Urine Culture - Final Escherichia coli ESBL positive <Will Ferreira - Last Filed: 09/28/18 16:02> Assessment and Plan (1) Choledocholithiasis with acute cholecystitis Status: Acute Code(s): K80.42 - Calculus of bile duct with acute cholecystitis without obstruction - Plan This patient is an 83-year-old female with past medical history significant for atrial fibrillation, anxiety, congestive heart failure, coronary artery disease, DVT, hypertension and Parkinson's disease. Surgical history significant for placement of coronary artery stent, hip replacement and knee surgery. Patient's daughter reports that patient presented to the emergency room at [facility] for evaluation of right upper quadrant abdominal pain. Daughter states pain started 2 days ago and has been accompanied by decreased appetite. Patient has had no complaints of nausea or active vomiting. Patient's daughter Arcelia denies patient has had fever or chills. She reports patient has had 2 days of constipation. She states patient normally has a soft bowel movement daily to every other day without any noted bleeding. She recalls last EGD and colonoscopy "many years ago". States to her best recollection, there were no abnormal findings. She endorses that patient does not utilize tobacco or alcohol products. Our service has been consulted to evaluate patient for choledocholithiasis found on CT. Choledocholithiasis Acute cholecystitis Patient presents to [facility] emergency room with reported right upper quadrant abdominal pain times 2 days with decreased appetite. Denies nausea or vomiting or fever and chills 09/25/2018 CT abdomen and pelvis reveal the following: Biliary duct dilatation down to the level the pancreatic head and ampulla. There are some subtle increased density within the distal common bile duct related to either a stone or possible mass in this region. The gallbladder is distended. The gallbladder wall is thickened. Some superimposed cholecystitis may also be present. Scattered colonic diverticula without inflammatory change. Chronic mild compression deformities at T12, L1 and L4. These were present on the prior exam. -WBC 8.4 hemoglobin 12.7 hematocrit 38.1 platelet count 233 INR 1.1 -Creatinine 1.24 BUN 14 potassium 5.5 total bilirubin 1.8 AST 35 ALT 17 alk phos 83 lipase 100 albumin 3.2 -Urinalysis-positive nitrates moderate leukocyte esterase RBC 17 many bacteria, culture indicated 09/28/18 Choledocholithiasis Acute cholecystitis S/P ERCP with sphincterotomy and balloon stone extraction. on 09/27/18 GS signed off , pt deemed to be poor surgical candidate, no plans for surgery Plan - YAO - Ok to DC home from GI stand point - Monitor labs - s/P GS eval. This patient has been seen by myself and Dr. Ferreira and this note is written on his behalf <Art Siddiqui - Last Filed: 09/28/18 13:33> (1) Choledocholithiasis with acute cholecystitis Status: Acute Code(s): K80.42 - Calculus of bile duct with acute cholecystitis without obstruction - Attending Attestation I have seen and examined the patient. I agree with the assessment and plan as above. <Will Ferreira - Last Filed: 09/28/18 16:02>
[2018-09-28] MEDS: Acetaminophen 325 MG Tablet PO PRN (19:14)
[2018-09-29] MEDS: Furosemide 40 MG Tablet PO SCH (08:18)
[2018-09-29] MEDS: Lisinopril 5 MG Tablet PO SCH (08:18)
[2018-09-29] MEDS: dilTIAZem CD 120 MG Capsule PO SCH (08:18)
[2018-09-29] MEDS: ALPRAZolam 0.25 MG Tablet PO SCH ×2 (08:18→21:01)
[2018-09-29] MEDS: Sod Chloride 0.9% Inj 1,000 ML IV.CONT SCH ×3 (08:18→23:55)
[2018-09-29] MEDS: Metoprolol Tartrate 25 MG Tablet PO SCH ×2 (08:18→21:01)
[2018-09-29] MEDS: Acetaminophen 325 MG Tablet PO PRN ×2 (08:19→15:42)
[2018-09-29 08:42] LABS: INR 1.2 Ratio; Prothrombin Time 11.9 sec (9.8-11.6)
[2018-09-29 08:43] LABS: Baso % (Auto) 0.5 % (0.0-2.0); Eos # (Auto) 0.1 th/mm3 (0.0-0.4); Eos % (Auto) 1.3 % (0.0-4.0); Hematocrit 28.7 % (35.0-46.0); Hemoglobin 9.4 gm/dL (11.6-15.3); Lymph # (Auto) 1.1 th/mm3 (1.0-4.8); Mean Corpuscular HGB Conc 32.6 % (32.0-36.0); Mean Corpuscular Hemoglobin 25.1 pg (27.0-34.0); Mean Platelet Volume 9.7 fL (7.0-11.0); Mono # (Auto) 0.5 th/mm3 (0.0-0.9); Mono % (Auto) 8.5 % (0.0-8.0); Neut % (Auto) 70.7 % (16.0-70.0); Platelet Count 114 th/mm3 (150-450); Red Blood Count 3.73 mil/mm3 (4.00-5.30); Red Cell Distribution Width 14.7 % (11.6-17.2); White Blood Count 5.7 th/mm3 (4.0-11.0)
--- NOTE | 2018-09-29 09:05 | P.PN ---
Subjective Interval history: Follow-up visit for abdominal pain and UTI. Patient is seen and examined sitting up in bed in no acute distress. Very hard of hearing but not complaining of anything. Spoke with daughter at bedside and update provided. Nurses report any acute events overnight or this morning. Physical Exam Vital signs: Vital Signs 09/28/18 12:00 09/28/18 15:00 09/28/18 19:05 Temperature 100.6 F H 98.5 F 101.7 F H Pulse Rate 73 68 81 Respiratory Rate 20 17 21 Blood Pressure 125/68 117/67 137/75 Pulse Oximetry 97 97 92 L 09/29/18 00:05 09/29/18 05:20 09/29/18 08:00 Temperature 98.6 F 99.6 F 99.2 F Pulse Rate 66 54 L 55 L Respiratory Rate 22 21 12 Blood Pressure 97/55 L 111/57 L 128/61 Pulse Oximetry 93 L 93 L 92 L Intake & Output 09/28/18 09/29/18 09/29/18 18:59 06:59 18:59 Intake Total 1100 / 1100 300 / 300 730 / 730 Output Total 240 / 240 Balance 860 / 860 300 / 300 730 / 730 Weight 76.2 kg Intake: IV 100 / 100 730 / 730 NS Inj 1,000 ML @ 70 mls/hr IV. 730 / 730 CONT .[id number] JESSICA Rx#:[id number] INVanz Inj 1,000 MG In NS Inj 100 / 100 100 ML @ 100 mls/hr IV.SIG Q24H JESSICA Rx#:[id number] Oral 1000 / 1000 300 / 300 Output: Urine 240 / 240 Other: # Incontinent Voids 1 1 Date of Last Bowel Movement 09/27/18 09/29/18 09/29/18 # Incontinent Bowel Movements 1 1 Narrative: GENERAL: Well-developed, well-nourished elderly AA female in no acute distress. SKIN: Warm and dry. HEAD: Atraumatic. Normocephalic. EYES: Pupils equal and round. No scleral icterus. No injection or drainage. ENT: No nasal bleeding or discharge. Mucous membranes pink and moist. NECK: Trachea midline. CARDIOVASCULAR: Regular rate and rhythm. RESPIRATORY: Clear to auscultation. Breath sounds equal bilaterally, nonlabored. GASTROINTESTINAL: Abdomen soft, non-tender, nondistended. + Bowel sounds. MUSCULOSKELETAL: Extremities without clubbing, cyanosis, or edema. No obvious deformities. NEUROLOGICAL: Awake, alert, poor historian. No obvious cranial nerve deficits, extremely hard of hearing. Motor grossly within normal limits. Normal speech. PSYCHIATRIC: Poor insight and judgment. Results - Labs CBC & Chem 7: 09/29/18 07:44 09/27/18 04:26 Laboratory Results - last 24 hr 09/29/18 09/29/18 07:44 07:44 WBC 5.7 RBC 3.73 L Hgb 9.4 L Hct 28.7 L MCV 77.0 L MCH 25.1 L MCHC 32.6 RDW 14.7 Plt Count 114 L D MPV 9.7 Neut % (Auto) 70.7 H Lymph % (Auto) 19.0 Garvin % (Auto) 8.5 H Eos % (Auto) 1.3 Baso % (Auto) 0.5 Neut # (Auto) 4.0 Lymph # (Auto) 1.1 Garvin # (Auto) 0.5 Eos # (Auto) 0.1 Baso # (Auto) 0.0 WBC Differential . Differential Comment Auto diff final PT 11.9 H INR 1.2 Microbiology 09/27/18 17:38 Blood - Peripheral Aerobic Blood Culture - Preliminary No growth in 1 day 09/27/18 17:38 Blood - Peripheral Anaerobic Blood Culture - Preliminary No growth in 1 day 09/27/18 17:43 Blood - Peripheral Aerobic Blood Culture - Preliminary No growth in 1 day 09/27/18 17:43 Blood - Peripheral Anaerobic Blood Culture - Preliminary No growth in 1 day Assessment and Plan - Plan 83-year-old -[place] female with past medical history significant for HTN, CAD, CHF, A. fib, anxiety, Parkinson's disease, and DVT anticoagulated on Coumadin who presented to the emergency department for evaluation of right upper quadrant abdominal pain. Right upper quadrant abdominal pain -CT of the abdomen/pelvis significant for biliary duct dilatation down to the level of the pancreatic head and ampulla. There are some subtle increased density within the distal common bile duct related to either a stone or possible mass with gallbladder distention and wall thickening. Concern for superimposed cholecystitis -Gastroenterology consulted, appreciate assistance. s/p ERCP with mildly dilated common duct. -Tolerating regular diet. -General surgery has signed off and recommend follow-up with GI after ERCP with sphincterectomy, appreciate assistance and recommendations. -GI has also signed off and cleared patient for discharge, appreciate assistance. UTI, + E. coli ESBL positive -Infectious disease following, continue ertapenem, blood cultures with no growth to date. -T-max today 99.7 -Pending final recommendations by ID for duration on treatment. Parkinson's disease -Continue carbidopa-levodopa Congestive heart failure -Continue home Lasix Hypertension/atrial fibrillation/CAD HX DVT -Continue home diltiazem, metoprolol and lisinopril -BP stable today. -Continue Coumadin, INR 1.2, additional 2 mg of Coumadin provided, continue monitoring INR. Anxiety Continue home Risperdal and temazepam DVT prophylaxis-continue Coumadin Discussed Condition With: Patient, nurse, daughter. Discharge Planning: Will need final recommendations by ID prior to discharge.
[2018-09-30 05:24] LABS: Hemoglobin 8.6 gm/dL (11.6-15.3)
[2018-09-30 05:40] LABS: INR 1.1 Ratio; Prothrombin Time 11.5 sec (9.8-11.6)
[2018-09-30] MEDS: ALPRAZolam 0.25 MG Tablet PO SCH ×2 (09:37→21:32)
[2018-09-30] MEDS: dilTIAZem CD 120 MG Capsule PO SCH (09:37)
[2018-09-30] MEDS: Furosemide 40 MG Tablet PO SCH (09:37)
[2018-09-30] MEDS: Metoprolol Tartrate 25 MG Tablet PO SCH ×2 (09:37→21:33)
[2018-09-30] MEDS: Lisinopril 5 MG Tablet PO SCH (09:37)
--- NOTE | 2018-09-30 09:55 | P.DCO ---
- Physical Therapy Order: Evaluate and treat, Improve ambulation, Strength and gait training - Occupational Therapy Order: Evaluate and treat, Improve ADL, Gross motor coordination, Fine motor coordination - Case Management Consult Case Management Consult-Home Health: Yes - Certification I have seen patient Ayala Fitzpatrick on 09/30/18. My clinical findings support the need for the requested home health care services because: Deconditioned with increased weakness I certify that my clinical findings support that this patient is homebound because: Impaired cognitive ability/safety, Unsteady gait/balance
[2018-09-30] MEDS: Acetaminophen 325 MG Tablet PO PRN (11:21)
--- NOTE | 2018-09-30 16:07 | P.PN ---
Subjective Interval history: Follow-up visit for UTI. Patient seen and examined sitting up to chair with daughter and family at bedside in no acute distress. Patient has been eating without any nausea, vomiting or complaints of abdominal pain. Patient hemodynamically stable, afebrile. Physical Exam Vital signs: Vital Signs 09/29/18 20:00 09/30/18 00:36 09/30/18 03:50 Temperature 99.3 F 99.4 F 97.5 F L Pulse Rate 63 62 59 L Respiratory Rate 16 16 16 Blood Pressure 106/60 130/71 104/53 L Pulse Oximetry 97 96 97 09/30/18 08:20 09/30/18 12:08 Temperature 98.5 F 98.7 F Pulse Rate 54 L 79 Respiratory Rate 17 18 Blood Pressure 123/63 106/53 L Pulse Oximetry 96 98 Intake & Output 09/29/18 09/30/18 09/30/18 18:59 06:59 18:59 Intake Total 1356 / 1356 240 / 240 Balance 1356 / 1356 240 / 240 Weight 70.6 kg Intake: IV 1356 / 1356 NS Inj 1,000 ML @ 70 mls/hr IV. 1256 / 1256 CONT .[id number] JESSICA Rx#:[id number] INVanz Inj 1,000 MG In NS Inj 100 / 100 100 ML @ 100 mls/hr IV.SIG Q24H JESSICA Rx#:[id number] Oral 240 / 240 Other: # Voids 2 # Incontinent Voids 3 Date of Last Bowel Movement 09/29/18 09/29/18 09/29/18 # Bowel Movements 1 Narrative: GENERAL: Well-developed, well-nourished elderly AA female in no acute distress. SKIN: Warm and dry. HEAD: Atraumatic. Normocephalic. EYES: Pupils equal and round. No scleral icterus. No injection or drainage. ENT: No nasal bleeding or discharge. Mucous membranes pink and moist. NECK: Trachea midline. CARDIOVASCULAR: Regular rate and rhythm. RESPIRATORY: Clear to auscultation. Breath sounds equal bilaterally, nonlabored. GASTROINTESTINAL: Abdomen soft, non-tender, nondistended. + Bowel sounds. MUSCULOSKELETAL: Extremities without clubbing, cyanosis, or edema. No obvious deformities. NEUROLOGICAL: Awake, alert, poor historian. No obvious cranial nerve deficits, extremely hard of hearing. Motor grossly within normal limits. Normal speech. PSYCHIATRIC: Poor insight and judgment. Results - Labs CBC & Chem 7: 09/30/18 04:08 09/27/18 04:26 Laboratory Results - last 24 hr 09/30/18 09/30/18 04:08 04:08 Hgb 8.6 L Hct 26.0 L PT 11.5 INR 1.1 Microbiology 09/27/18 17:38 Blood - Peripheral Aerobic Blood Culture - Preliminary No growth in 3 days 09/27/18 17:38 Blood - Peripheral Anaerobic Blood Culture - Preliminary No growth in 3 days 09/27/18 17:43 Blood - Peripheral Aerobic Blood Culture - Preliminary No growth in 3 days 09/27/18 17:43 Blood - Peripheral Anaerobic Blood Culture - Preliminary No growth in 3 days Assessment and Plan - Plan 83-year-old -Citizen Of [place] female with past medical history significant for HTN, CAD, CHF, A. fib, anxiety, Parkinson's disease, and DVT anticoagulated on Coumadin who presented to the emergency department for evaluation of right upper quadrant abdominal pain. Right upper quadrant abdominal pain -CT of the abdomen/pelvis significant for biliary duct dilatation down to the level of the pancreatic head and ampulla. There are some subtle increased density within the distal common bile duct related to either a stone or possible mass with gallbladder distention and wall thickening. Concern for superimposed cholecystitis -Gastroenterology consulted, appreciate assistance. s/p ERCP with mildly dilated common duct. -Tolerating regular diet. -General surgery has signed off and recommend follow-up with GI after ERCP with sphincterectomy, appreciate assistance and recommendations. -GI has also signed off and cleared patient for discharge, appreciate assistance. UTI, + E. coli ESBL positive -Infectious disease following, continue ertapenem, blood cultures with no growth to date. -Afebrile -Pending final recommendations by ID for duration on treatment. Parkinson's disease -Continue carbidopa-levodopa Congestive heart failure -Continue home Lasix Hypertension/atrial fibrillation/CAD HX DVT -Continue home diltiazem, metoprolol and lisinopril -BP stable today. -Continue Coumadin, INR 1.1, Coumadin increased to 5 mg today, continue monitoring INR. Anxiety Continue home Risperdal and temazepam DVT prophylaxis-continue Coumadin Discussed Condition With: Patient, RN, daughter. Discharge Planning: Will need final recommendations by ID prior to discharge.
[2018-09-30] MEDS: Sod Chloride 0.9% Inj 1,000 ML IV.CONT SCH (17:26)
[2018-09-30] MEDS: Amoxicillin/Clavulanate 875/125 MG Tablet PO SCH (21:33)
[2018-10-01 05:24] LABS: INR 1.5 Ratio
[2018-10-01 05:55] LABS: Hematocrit 28.2 % (35.0-46.0); Hemoglobin 9.1 gm/dL (11.6-15.3); Mean Corpuscular HGB Conc 32.1 % (32.0-36.0); Mean Corpuscular Hemoglobin 24.6 pg (27.0-34.0); Mean Corpuscular Volume 76.4 fL (80.0-100.0); Mean Platelet Volume 8.8 fL (7.0-11.0); Platelet Count 208 th/mm3 (150-450); Red Blood Count 3.69 mil/mm3 (4.00-5.30); Red Cell Distribution Width 14.4 % (11.6-17.2); White Blood Count 3.4 th/mm3 (4.0-11.0)
[2018-10-01] MEDS: Sod Chloride 0.9% Inj 1,000 ML IV.CONT SCH (06:16)
[2018-10-01] MEDS: Furosemide 40 MG Tablet PO SCH (08:19)
[2018-10-01] MEDS: Amoxicillin/Clavulanate 875/125 MG Tablet PO SCH (08:20)
[2018-10-01] MEDS: Lisinopril 5 MG Tablet PO SCH (08:20)
[2018-10-01] MEDS: dilTIAZem CD 120 MG Capsule PO SCH (08:20)
[2018-10-01] MEDS: Metoprolol Tartrate 25 MG Tablet PO SCH (08:20)
[2018-10-01] MEDS: ALPRAZolam 0.25 MG Tablet PO SCH (08:20)
--- NOTE | 2018-10-01 10:06 | P.DS ---
Date of admission: 09/25/18 22:42 Primary care physician: UNKNOWN Attending physician on discharge: Darius English Anticipated date of discharge: 10/01/18 Brief History from admission: 83-year-old female with a past medical history significant for hypertension, coronary artery disease, CHF, a fib, anxiety, Parkinson's disease and history of DVT anticoagulated on Coumadin presents to the emergency department for evaluation of right upper quadrant abdominal pain. History provided by the patient's daughter. She reports that the patient has been complaining of abdominal pain since Sunday when she saw her primary care provider who prescribed an unknown medication that the patient has not yet been able to take. No fever/chills. No chest pain or shortness of breath. No nausea/ vomiting/diarrhea. No focal neurologic deficits. DS: Summary Hospital Course: 83-year-old female with past medical history significant for HTN, CAD, CHF, A. fib anticoagulated on Coumadin, DVT, anxiety and Parkinson disease who presented to the emergency department on 09/26 due to right upper quadrant abdominal pain. Lab work completed in the emergency department with stable CBC , CMP with slight hypokalemia at 5.5 and ALETHEA with a creatinine of 1.24, T bili 1.8. CT of the abdomen/pelvis significant for biliary duct dilatation down to the level of the pancreatic head and ampulla. There are some subtle increased density within the distal common bile duct related to either a stone or possible mass with gallbladder distention and wall thickening. Concern for superimposed cholecystitis. Patient was seen and evaluated by gastroenterology and underwent ERCP with sphincterotomy which revealed mildly dilated common bile duct. General surgery was consulted for further evaluation, she was deemed a poor surgical candidate. Abdominal pain resolved was able to tolerate a regular diet without any nausea or vomiting. Recommendations for conservative treatment per general surgery. Patient also developed fevers and her urine was positive for E. coli ESBL positive. Patient was started on imipenem and infectious disease consulted for further recommendations. She was transitioned over to ertapenem with no further episodes of fever. Patient also remained asymptomatic during her stay. Discussed with infectious disease, switched over to oral Augmentin with no further fevers, symptoms, tolerating medication without nausea and vomiting. Patient also possibly colonized, will complete 7-day course. Blood cultures x2- to date. Following ERCP her Coumadin was resumed, INR this morning subtherapeutic and INR on admission also subtherapeutic. This morning discussed with daughter at bedside regarding options including Eliquis, discussed pros and cons regarding medication as well as need to follow-up with educational therapist. First dose of Eliquis this morning, tolerated well, will discharge on 5 mg twice daily. Discussed with daughter will need ongoing monitoring of kidney function in case dose needs to be adjusted as well as monitor for bleeding. Discussed with . No episodes of fevers, vital signs stable overnight, patient wanting to go home. - Time Spent with Patient Total time spent providing and/or coordinating discharge services: Less than 30 minutes - Quality: VTE Deep Vein Thrombosis/Pulmonary Embolism Present on Admission: No Exam Vital signs: Vital Signs 09/30/18 12:08 09/30/18 15:56 09/30/18 20:00 Temperature 98.7 F 98.1 F 98.1 F Pulse Rate 79 57 L 59 L Respiratory Rate 18 18 19 Blood Pressure 106/53 L 105/56 L 122/66 Pulse Oximetry 98 95 99 10/01/18 00:24 10/01/18 05:15 10/01/18 08:00 Temperature 98.0 F 98.6 F 98.3 F Pulse Rate 62 66 67 Respiratory Rate 18 18 18 Blood Pressure 119/68 126/66 143/75 H Pulse Oximetry 100 98 95 Intake & Output 09/30/18 10/01/18 10/01/18 18:59 06:59 18:59 Intake Total 1240 / 1240 1300 / 1300 Balance 1240 / 1240 1300 / 1300 Weight 72.1 kg Intake: IV 1000 / 1000 100 / 100 NS Inj 1,000 ML @ 70 mls/hr IV. 1000 / 1000 CONT .[id number] [facility] Rx#:[id number] Oral 240 / 240 1200 / 1200 Other: # Voids 1 Date of Last Bowel Movement 09/29/18 09/29/18 09/29/18 # Bowel Movements 1 Narrative: GENERAL: Well-developed, well-nourished elderly AA female in no acute distress. SKIN: Warm and dry. HEAD: Atraumatic. Normocephalic. EYES: Pupils equal and round. No scleral icterus. No injection or drainage. ENT: No nasal bleeding or discharge. Mucous membranes pink and moist. NECK: Trachea midline. CARDIOVASCULAR: Regular rate and rhythm. RESPIRATORY: Clear to auscultation. Breath sounds equal bilaterally, nonlabored. GASTROINTESTINAL: Abdomen soft, non-tender, nondistended. + Bowel sounds. MUSCULOSKELETAL: Extremities without clubbing, cyanosis, or edema. No obvious deformities. NEUROLOGICAL: Awake, alert, poor historian. No obvious cranial nerve deficits, extremely hard of hearing. Motor grossly within normal limits. Normal speech. PSYCHIATRIC: Poor insight and judgment. Results Procedures completed during hospitalization: Date of procedure: 09/27/18 Pre-op diagnosis: Choledocholithiasis with dilated bile duct Post-op diagnosis: same Procedure: Indication: Common bile duct stone and dilated common bile duct Procedure Performed: ERCP with sphincterotomy and balloon stone extraction. Labs on day of discharge: Labs from last 24 hours 10/01/18 10/01/18 04:08 04:08 WBC 3.4 L RBC 3.69 L Hgb 9.1 L Hct 28.2 L MCV 76.4 L MCH 24.6 L MCHC 32.1 RDW 14.4 Plt Count 208 D MPV 8.8 PT 15.0 H INR 1.5 Preliminary micro results at discharge 09/27/18 17:38 Aerobic Blood Culture - Preliminary Blood - Peripheral No growth in 3 days Anaerobic Blood Culture - Preliminary No growth in 3 days 09/27/18 17:43 Aerobic Blood Culture - Preliminary Blood - Peripheral No growth in 3 days Anaerobic Blood Culture - Preliminary No growth in 3 days - Impressions ITS Impressions Abdomen/Pelvis CT 09/25/18 19:58 CONCLUSION: 1. Biliary duct dilatation down to the level the pancreatic head and ampulla. There are some subtle increased density within the distal common bile duct related to either a stone or possible mass in this region. The gallbladder is distended. The gallbladder wall is thickened. Some superimposed cholecystitis may also be present. 2. Scattered colonic diverticula without inflammatory change. 3. Chronic mild compression deformities at T12, L1 and L4. These were present on the prior exam. Chest X-Ray 09/25/18 19:58 CONCLUSION: 1. No acute cardiopulmonary disease. 2. Old trauma involving the right clavicle and right humerus. GI Procedure 09/27/18 00:00 CONCLUSION: Mildly dilated common duct. Discharge Plan - Discharge Disposition Patient Disposition: /Home Health Service - Discharge Condition Condition: Good - Discharge Order Discharge Orders: Discharge Order (Routine); Ordered 10/01/18 Ordered By: Miky Banks ED Use Only Admit Order (Routine); Ordered 09/25/18 Ordered By: Aj Hooper - Physicians Team Primary Care Provider: UNKNOWN, Attending Provider: Darius English Other Providers: Will Ferreira MD ; Wendi Juarez MD
== END 2018-10-01 10:46 | disposition home health service (06) ==
LOC: NEPE 19:34 → NEDA 22:42 → NEPHCDU 09-26 00:57 → N06 09-26 07:53
PROVIDERS: ADMIT Internal Medicine; ATTEND Internal Medicine